=== PATIENT | female | born 1950 | race Caucasian/White ===

== ENCOUNTER → 2017-03-30 | Outpatient (CLI) | payer MEDICARE, OTHER ==
[2017-03-30 10:12] LABS: Chloride 107 mmol/L (98-107)
[2017-03-30 10:20] LABS: ALT 19 U/L (9-52); AST 14 U/L (14-36); Alkaline Phosphatase 49 U/L (38-126); Anion Gap 11 mmol/L; Blood Urea Nitrogen 14 mg/dL (7-17); Calcium 9.5 mg/dL (8.4-10.2); Carbon Dioxide 23 mmol/L (22-30); Cholesterol 144 mg/dL (<200); Glucose 122 mg/dL (74-99); HDL Cholesterol 65 mg/dL (40-60); Non-African American GFR(MDRD) >60 (>60 ml/min/1.73 sqM); Potassium 4.6 mmol/L (3.5-5.1); Sodium 141 mmol/L (137-145); Total Bilirubin 0.9 mg/dL (0.2-1.3); Total Protein 7.3 g/dL (6.3-8.2); Triglycerides 102 mg/dL (<150)
[2017-03-30 10:51] LABS: Hemoglobin A1C 6.5 % (4.2-6.1)
== END | disposition home or self-care (01) ==
LOC: LABWHC1 09:36
PROVIDERS: ATTEND Internal Medicine Endocrinology, Diabetes & Metabolism
DX: E11.65 Type 2 diabetes mellitus with hyperglycemia (principal)
CPT/HCPCS: 36415; 80053; 80061; 82043; 83036

== ENCOUNTER → 2018-03-29 | Outpatient (CLI) | payer MEDICARE, OTHER ==
[2018-03-29 11:41] LABS: ALT 16 U/L (9-52); AST 11 U/L (14-36); Alkaline Phosphatase 54 U/L (38-126); Anion Gap 12 mmol/L; Blood Urea Nitrogen 10 mg/dL (7-17); Calcium 9.3 mg/dL (8.4-10.2); Carbon Dioxide 26 mmol/L (22-30); Chloride 104 mmol/L (98-107); Cholesterol 128 mg/dL (<200); Glucose 108 mg/dL (74-99); HDL Cholesterol 55 mg/dL (40-60); LDL Cholesterol,Calculated 49 mg/dL (0-99); Potassium 4.9 mmol/L (3.5-5.1); Sodium 142 mmol/L (137-145); Total Bilirubin 0.7 mg/dL (0.2-1.3); Total Protein 6.3 g/dL (6.3-8.2); Triglycerides 122 mg/dL (<150)
[2018-03-29 20:19] LABS: Hemoglobin A1C 6.7 % (4.0-6.0)
== END | disposition home or self-care (01) ==
LOC: LABWHC1 10:55
PROVIDERS: ATTEND Internal Medicine Endocrinology, Diabetes & Metabolism
DX: E11.65 Type 2 diabetes mellitus with hyperglycemia (principal); E78.2 Mixed hyperlipidemia
CPT/HCPCS: 36415; 80053; 80061; 82043; 82570; 83036

== ENCOUNTER → 2018-09-28 | Outpatient (CLI) | payer MEDICARE, OTHER ==
[2018-09-28 18:41] LABS: Albumin 4.4 g/dL (3.80-4.90); Albumin/Globulin Ratio 2.2 (1.20-2.10); Anion Gap 7.9 mmol/L (4.00-12.00); Calcium 9.4 mg/dL (8.7-10.3); Carbon Dioxide 28.1 mmol/L (21.6-31.8); LDL Cholesterol,Calculated 64.8 mg/dL (0.0-131.0); Potassium 4.1 mmol/L (3.5-5.5); Total Bilirubin 0.8 mg/dL (0.3-1.2); Total Protein 6.4 g/dL (6.2-8.2); VLDL Calculation 25.2 mg/dL (5.00-40.00)
[2018-09-28 22:44] LABS: Hemoglobin A1C 6.9 % (4.0-6.0)
== END ==
LOC: LABWHC1 11:35
PROVIDERS: ATTEND Internal Medicine Endocrinology, Diabetes & Metabolism
DX: E11.65 Type 2 diabetes mellitus with hyperglycemia (principal); E78.2 Mixed hyperlipidemia
CPT/HCPCS: 36415; 80053; 80061; 82043; 82570; 83036

== ENCOUNTER → 2018-11-21 | Outpatient (CLI) | payer MEDICARE, OTHER ==
[2018-11-21 11:05] LABS: HCT 40.4 % (34.0-46.0); HGB 13.5 gm/dL (11.4-16.0); MCHC 33.4 g/dL (31.0-37.0); MCV 92.7 fL (80.0-100.0); Mean Platelet Volume 7.8; Platelet Count 249 k/uL (150-450); RBC 4.36 m/uL (3.80-5.40); RDW 12.6 % (11.5-15.5); WBC 8.9 k/uL (3.8-10.6)
[2018-11-21 11:12] LABS: Anion Gap 7 mmol/L; Blood Urea Nitrogen 8 mg/dL (7-17); Carbon Dioxide 28 mmol/L (22-30); Chloride 106 mmol/L (98-107); Potassium 4.6 mmol/L (3.5-5.1); Sodium 141 mmol/L (137-145)
== END | disposition home or self-care (01) ==
LOC: LABPAT 10:10
PROVIDERS: ATTEND Internal Medicine Interventional Cardiology
DX: Z01.812 Encounter for preprocedural laboratory examination (principal); I48.0 Paroxysmal atrial fibrillation; I25.10 Atherosclerotic heart disease of native coronary artery without angina pectoris; R94.39 Abnormal result of other cardiovascular function study
CPT/HCPCS: 36415; 80051; 82565; 84520; 85027

== ENCOUNTER → 2018-11-29 | Day surgery (SDC) | payer MEDICARE ==
[2018-11-21 14:18] VITALS: BMI 38.0
[~2018-11-29] MED LIST: ALPRAZolam 0.25 MG TAB PO PRN; ALPRAZolam 0.5 MG TAB PO PRN; ASPIRIN 325 MG TAB PO STA; ASPIRIN 81 MG PO SCH; ATORVASTATIN 20 MG TAB PO SCH; ATORVASTATIN 80 MG TAB PO STA; HEPARIN SODIUM 1,000 UN/ML (10ML VL) ONE; INSULIN GLARGINE 36 UNIT SQ SCH; IOPAMIDOL-370 100ML BTL INJ ONE; IOPAMIDOL-370 125ML BTL INJ ONE; LIDOCAINE 1% INJ 10MG/ML (20 ML MDV) ONE; LISINOPRIL 20 MG TAB PO SCH; LISINOPRIL 20 MG TAB PO STA; NITROGLYCERIN SL TABS 0.4 MG TAB SUBLINGUAL ONE; NITROGLYCERIN SL TABS 0.4 MG TAB SUBLINGUAL PRN; NON-FORMULARY DRUG (Liraglutide [Victoza 2-Pak] 1.2 MG) SQ SCH; RX INFO: IV CONTRAST WAS GIVEN 1 EACH MISC MISCELLANE PRN; SODIUM CHLORIDE 0.9% 1,000 ML IV ONE; SODIUM CHLORIDE 0.9% 1,000 ML IV SCH; SODIUM CHLORIDE 0.9% 1,000 ML in EMPTY BAG 1 BAG IV ONE; VERAPAMIL 2.5 MG/ML 2 ML AMP ONE; amLODIPine 5 MG TAB PO STA; fentaNYL (PF) 50 MCG/ML 2 ML AMP ONE
[2018-11-29 07:11] VITALS: RESP 18; TEMP 97.6
[2018-11-29] MEDS: fentaNYL (PF) 50 MCG/ML 2 ML AMP IV ONE ×2 (07:36→07:50)
[2018-11-29] MEDS: LIDOCAINE 1% INJ 10MG/ML (20 ML MDV) SQ ONE ×2 (07:40→07:48)
[2018-11-29] MEDS: MIDAZOLAM 2 MG/2 ML VIAL IV ONE ×3 (07:42→07:49)
[2018-11-29 08:13] LABS: Glucose,Whole Blood 168 mg/dL (75-99)
--- NOTE | 2018-11-29 08:49 | CC ---
CARDIAC CATHETERIZATION REPORT Mrs. Smallwood is a 68-year-old female with known history of hypertension, hyperlipidemia, diabetes mellitus, history of coronary artery bypass grafting in 2003 who has been complaining of progressive dyspnea on exertion underwent a myocardial perfusion imaging that revealed evidence of inducible ischemia. In view of that, recommendation was made regarding cardiac catheterization. The procedures as well as the risks and the complications were discussed with the patient who is in full understanding and agreement. PROCEDURE: Patient was brought to the dye lab technician in a fasting semi-sedated state after receiving fentanyl and Benadryl and achieving moderate conscious sedated state. Attempts to cannulate the left radial artery were unsuccessful at that time. Using Xylocaine anesthesia in the Seldinger technique, a 6-Tristanian sheath was introduced in the right femoral artery. Selective right and left coronary angiography performed 6-Tristanian 4 bend, right and left Lexy catheter, multiple views of the coronary artery including hemiaxial views were obtained. Following that, the 6-Tristanian right Lexy catheter was used to cannulate the saphenous vein graft to the ramus intermedius, saphenous vein graft to the right coronary artery and VERA to the LAD. Images of the grafts were obtained. Following that, a 6-Tristanian tight pigtail catheter was introduced in the left ventricle and a 30-degree HARRIS view of the left ventricle was obtained. Following that, catheter and sheath were removed. Hemostasis was obtained with deployment of an Angio- Seal. There was no immediate complication. Patient was returned to her room in stable condition. FINDINGS: LEFT MAIN: This vessel is totally occluded proximally with no antegrade flow. RIGHT CORONARY ARTERY: This is a dominant vessel large in caliber bifurcating distally PDA, posterolateral segment and branches. The right coronary artery has a 95% stenosis in the mid segment. It has competitive flow distally through the saphenous vein graft. SAPHENOUS VEIN GRAFT TO THE RAMUS INTERMEDIUS: The proximal and distal anastomotic sites are patent. The flow into the ramus intermedius and left circumflex territory is brisk. There is diffuse intimal disease in the AV groove left circumflex. SAPHENOUS VEIN GRAFT TO THE RIGHT CORONARY ARTERY: The proximal and distal anastomotic sites are patent. The flow into the PDA and PLV is brisk. There is no evidence of high-grade stenosis. VERA TO THE LAD: The distal anastomotic site is patent. The flow into the LAD is brisk. There is no evidence of obstructive coronary artery disease. LEFT VENTRICULOGRAM: Left ventriculogram is performed in 30-degree HARRIS view and revealed normal left ventricular size and systolic function. Ejection fraction is above 60%. There was no significant mitral regurgitation. HEMODYNAMICS: There was no gradient across the aortic valve. The left ventricular end- diastolic pressure was 14 to 16 mmHg. CONCLUSION: 1. Chronically occluded proximal left main. 2. Critical stenosis in the mid right coronary artery. 3. Patent VERA to LAD. 4. Patent saphenous vein graft to the ramus intermedius. 5. Patent saphenous vein graft to the right coronary artery. 6. Normal left ventricular size and systolic function. RECOMMENDATION: In view of finding anatomy, recommend to continue medical therapy with aggressive coronary risk modifications that have been initiated. Those findings and recommendation were discussed with the patient and her family who are in full understanding and agreement. DURATION OF PROCEDURE: 42 minutes. LINK / CHIP: [id number] /
[2018-11-29 17:03] VITALS: PULSE 64
[2018-11-29 17:07] VITALS: BP 190/78
== END | disposition home or self-care (01) ==
LOC: CATHCVL 06:29
PROVIDERS: ATTEND Internal Medicine Interventional Cardiology
DX: I25.10 Atherosclerotic heart disease of native coronary artery without angina pectoris (principal); I25.82 Chronic total occlusion of coronary artery; I10 Essential (primary) hypertension; E78.2 Mixed hyperlipidemia; I48.0 Paroxysmal atrial fibrillation; E11.9 Type 2 diabetes mellitus without complications; Z79.4 Long term (current) use of insulin; Z82.49 Family history of ischemic heart disease and other diseases of the circulatory system; Z95.1 Presence of aortocoronary bypass graft; Z79.01 Long term (current) use of anticoagulants; Z79.82 Long term (current) use of aspirin; Z79.899 Other long term (current) drug therapy; Z88.0 Allergy status to penicillin
CPT/HCPCS: 93459; C1760; C1894 ×2; C1769; J2250; J2001; J3010; Q9967 ×2

== ENCOUNTER → 2019-03-28 | Outpatient (CLI) | payer MEDICARE ==
[2019-03-28 16:24] LABS: Albumin 4.3 g/dL (3.80-4.90); Albumin/Globulin Ratio 2.39 (1.60-3.17); Anion Gap 11.2 mmol/L (4.00-12.00); Calcium 9.1 mg/dL (8.7-10.3); Carbon Dioxide 23.8 mmol/L (21.6-31.8); Globulin 1.8 g/dL (1.6-3.3); LDL Cholesterol,Calculated 67.6 mg/dL (0.0-131.0); Potassium 4.1 mmol/L (3.5-5.5); Total Bilirubin 0.7 mg/dL (0.2-1.2); Total Protein 6.1 g/dL (6.2-8.2); VLDL Calculation 23.4 mg/dL (5.00-40.00)
[2019-03-28 18:43] LABS: Hemoglobin A1C 7.1 % (4.0-6.0)
== END | disposition home or self-care (01) ==
LOC: LABWHC1 10:25
PROVIDERS: ATTEND Nurse Practitioner Adult Health
DX: E78.2 Mixed hyperlipidemia (principal); E11.65 Type 2 diabetes mellitus with hyperglycemia
CPT/HCPCS: 36415; 80053; 80061; 82043; 82570; 83036

== ENCOUNTER → 2019-09-27 | Outpatient (CLI) | payer MEDICARE ==
[2019-09-27 17:51] LABS: African American GFR (CKD) 106.3 (60.0-200.0); Albumin 4.2 g/dL (3.80-4.90); Albumin/Globulin Ratio 2.21 (1.60-3.17); Anion Gap 9.7 mmol/L (4.00-12.00); BUN/Creat Ratio 18.33 Ratio (12.00-20.00); Calcium 8.9 mg/dL (8.7-10.3); Carbon Dioxide 24.3 mmol/L (21.6-31.8); Chol/HDL Ratio 2.81; Globulin 1.9 g/dL (1.6-3.3); LDL Cholesterol,Calculated 56.8 mg/dL (0.0-131.0); Potassium 4.2 mmol/L (3.5-5.5); Total Bilirubin 0.4 mg/dL (0.2-1.2); Total Protein 6.1 g/dL (6.2-8.2); VLDL Calculation 28.2 mg/dL (5.00-40.00)
[2019-09-27 18:04] LABS: Hemoglobin A1C 6.5 % (4.0-6.0)
== END | disposition home or self-care (01) ==
LOC: LABWHC1 07:15
PROVIDERS: ATTEND Internal Medicine Endocrinology, Diabetes & Metabolism
DX: E78.2 Mixed hyperlipidemia (principal)
CPT/HCPCS: 36415; 80053; 80061; 82043; 82570; 83036; 84443

== ENCOUNTER → 2020-06-17 | Outpatient (CLI) | payer MEDICARE ==
[2020-06-17 16:54] LABS: Albumin 4.4 g/dL (3.80-4.90); Albumin/Globulin Ratio 1.91 (1.60-3.17); Anion Gap 11.1 mmol/L (4.00-12.00); BUN/Creat Ratio 21.11 Ratio (12.00-20.00); Calcium 9.4 mg/dL (8.7-10.3); Carbon Dioxide 21.9 mmol/L (21.6-31.8); Globulin 2.3 g/dL (1.6-3.3); LDL Cholesterol,Calculated 53.2 mg/dL (0.0-131.0); Non-African American GFR(CKD) 63.9 (60.0-200.0); Potassium 4.2 mmol/L (3.5-5.5); Total Bilirubin 0.8 mg/dL (0.3-1.2); Total Protein 6.7 g/dL (6.2-8.2); VLDL Calculation 28.8 mg/dL (5.00-40.00)
[2020-06-17 18:47] LABS: Urine Creatinine 93.2 mg/dL
[2020-06-17 20:18] LABS: Hemoglobin A1C 7.1 % (4.0-6.0)
== END | disposition home or self-care (01) ==
LOC: LABWHC1 10:51
PROVIDERS: ATTEND Internal Medicine Interventional Cardiology
DX: I10 Essential (primary) hypertension (principal); E78.2 Mixed hyperlipidemia; E11.65 Type 2 diabetes mellitus with hyperglycemia
CPT/HCPCS: 36415; 80053; 80061; 82043; 82570; 83036; 84443

== ENCOUNTER → 2020-09-14 | Outpatient (CLI) | payer MEDICARE ==
[2020-09-14 19:22] LABS: Albumin 4.2 g/dL (3.80-4.90); Anion Gap 8.3 mmol/L (4.00-12.00); Calcium 9.6 mg/dL (8.7-10.3); Carbon Dioxide 23.7 mmol/L (21.6-31.8); Globulin 2.1 g/dL (1.6-3.3); Non-African American GFR(CKD) 63.9 (60.0-200.0); Potassium 4.4 mmol/L (3.5-5.5); Total Bilirubin 0.5 mg/dL (0.3-1.2); Total Protein 6.3 g/dL (6.2-8.2)
== END | disposition home or self-care (01) ==
LOC: LABWHC1 12:14
PROVIDERS: ATTEND Internal Medicine Interventional Cardiology
DX: D48.3 Neoplasm of uncertain behavior of retroperitoneum (principal)
CPT/HCPCS: 36415; 80053; 84443

== ENCOUNTER → 2020-09-29 | Outpatient (CLI) | payer MEDICARE ==
[2020-09-29 15:58] LABS: Chol/HDL Ratio 2.85; LDL Cholesterol,Calculated 51.8 mg/dL (0.0-131.0); VLDL Calculation 24.2 mg/dL (5.00-40.00)
[2020-09-29 16:19] LABS: Hemoglobin A1C 6.9 % (4.0-6.0)
[2020-09-29 16:31] LABS: Urine Creatinine 146.4 mg/dL
== END | disposition home or self-care (01) ==
LOC: LABWHC1 07:31
PROVIDERS: ATTEND Internal Medicine Endocrinology, Diabetes & Metabolism
DX: E11.65 Type 2 diabetes mellitus with hyperglycemia (principal)
CPT/HCPCS: 36415; 80061; 82043; 82570; 83036

== ENCOUNTER → 2021-05-04 | Outpatient (CLI) | payer MEDICARE ==
[2021-05-04 20:34] LABS: African American GFR (CKD) 73.5 (60.0-200.0); Albumin/Globulin Ratio 1.74 (1.60-3.17); Anion Gap 8.8 mmol/L (4.00-12.00); BUN/Creat Ratio 25.56 Ratio (12.00-20.00); Calcium 9.9 mg/dL (8.7-10.3); Carbon Dioxide 22.2 mmol/L (21.6-31.8); Chol/HDL Ratio 2.67; Globulin 2.3 g/dL (1.6-3.3); LDL Cholesterol,Calculated 44.8 mg/dL (0.0-131.0); Non-African American GFR(CKD) 63.4 (60.0-200.0); Potassium 4.3 mmol/L (3.5-5.5); Total Bilirubin 0.5 mg/dL (0.2-1.2); Total Protein 6.3 g/dL (6.2-8.2); VLDL Calculation 20.2 mg/dL (5.00-40.00)
[2021-05-04 22:21] LABS: Urine Creatinine 31.9 mg/dL
== END | disposition home or self-care (01) ==
LOC: LABWHC1 10:12
PROVIDERS: ATTEND Internal Medicine Endocrinology, Diabetes & Metabolism
DX: E11.65 Type 2 diabetes mellitus with hyperglycemia (principal)
CPT/HCPCS: 36415; 80053; 80061; 82043; 82570; 83036; 84443

== ENCOUNTER → 2021-10-25 | Outpatient (CLI) | payer MEDICARE ==
[2021-10-25 11:39] LABS: ALT 11 U/L (8-44); AST 18 U/L (13-35); African American GFR (CKD) 70.8 (60.0-200.0); Albumin 4.2 g/dL (3.8-4.9); Albumin/Globulin Ratio 1.68 (1.60-3.17); Alkaline Phosphatase 56 U/L (41-126); BUN/Creat Ratio 27.48 Ratio (12.00-20.00); Blood Urea Nitrogen 25.5 mg/dL (9.0-27.0); Calcium 9.4 mg/dL (8.7-10.3); Carbon Dioxide 20.8 mmol/L (20.0-27.5); Chloride 105 mmol/L (96-109); Chol/HDL Ratio 2.46 Ratio; Globulin 2.5 g/dL (1.6-3.3); Glucose 67 mg/dL (70-110); LDL Cholesterol,Calculated 55.3 mg/dL (0.0-131.0); Non-African American GFR(CKD) 61.1 (60.0-200.0); Potassium 4.3 mmol/L (3.5-5.5); Sodium 139 mmol/L (135-145); Total Protein 6.8 g/dL (6.2-8.2)
[2021-10-25 12:12] LABS: Urine Creatinine 52.2 mg/dL (28.0-217.0)
== END | disposition home or self-care (01) ==
LOC: LABWHC1 07:28
PROVIDERS: ATTEND Internal Medicine Endocrinology, Diabetes & Metabolism
DX: E11.65 Type 2 diabetes mellitus with hyperglycemia (principal)
CPT/HCPCS: 36415; 80053; 80061; 82043; 82570; 83036; 84443

== ENCOUNTER → 2022-05-03 | Outpatient (CLI) | payer MEDICARE ==
[2022-05-03 15:34] LABS: ALT 11 U/L (8-44); AST 13 U/L (13-35); Albumin 4.1 g/dL (3.8-4.9); Albumin/Globulin Ratio 1.64 (1.60-3.17); Alkaline Phosphatase 51 U/L (41-126); BUN/Creat Ratio 28.89 Ratio (12.00-20.00); Calcium 9.5 mg/dL (8.7-10.3); Chloride 107 mmol/L (96-109); Chol/HDL Ratio 2.43 Ratio; Globulin 2.5 g/dL (1.6-3.3); Glucose 81 mg/dL (70-110); LDL Cholesterol,Calculated 59.3 mg/dL (0.0-131.0); Potassium 4.7 mmol/L (3.5-5.5); Sodium 142 mmol/L (135-145); Total Protein 6.6 g/dL (6.2-8.2)
[2022-05-03 17:31] LABS: Microalbumin Creatinine Ratio <30 mg/g Creat (0-30); Urine Creatinine 45.8 mg/dL (28.0-217.0)
== END | disposition home or self-care (01) ==
LOC: LABWHC1 08:54
PROVIDERS: ATTEND Internal Medicine Endocrinology, Diabetes & Metabolism
DX: E78.2 Mixed hyperlipidemia (principal); E11.65 Type 2 diabetes mellitus with hyperglycemia
CPT/HCPCS: 36415; 80053; 80061; 82043; 82570; 83036; 84443

== ENCOUNTER → 2022-10-31 | Outpatient (CLI) | payer MEDICARE ==
[2022-10-31 15:23] LABS: ALT 7 U/L (8-44); AST 15 U/L (13-35); African American GFR (CKD) 57.3 (60.0-200.0); Albumin/Globulin Ratio 1.48 (1.60-3.17); Alkaline Phosphatase 45 U/L (41-126); BUN/Creat Ratio 17.36 Ratio (12.00-20.00); Blood Urea Nitrogen 19.1 mg/dL (9.0-27.0); Calcium 9.7 mg/dL (8.7-10.3); Carbon Dioxide 24.2 mmol/L (20.0-27.5); Chloride 107 mmol/L (96-109); Chol/HDL Ratio 2.32 Ratio; Globulin 2.7 g/dL (1.6-3.3); Glucose 90 mg/dL (70-110); LDL Cholesterol,Calculated 56.6 mg/dL (0.0-131.0); Non-African American GFR(CKD) 49.4 (60.0-200.0); Potassium 4.2 mmol/L (3.5-5.5); Sodium 140 mmol/L (135-145); Total Protein 6.7 g/dL (6.2-8.2); VLDL Calculation 16.92 mg/dL (5.00-40.00)
[2022-10-31 19:59] LABS: Urine Creatinine 45.9 mg/dL (28.0-217.0)
== END | disposition home or self-care (01) ==
LOC: LABWHC1 07:53
PROVIDERS: ATTEND Internal Medicine Endocrinology, Diabetes & Metabolism
DX: E11.65 Type 2 diabetes mellitus with hyperglycemia (principal); E78.2 Mixed hyperlipidemia
CPT/HCPCS: 36415; 80053; 80061; 82043; 82570; 83036; 84443

== ENCOUNTER → 2023-02-09 | Outpatient (CLI) | payer MEDICARE | END | disposition home or self-care (01) | LOC: LABWHC1 11:04 | PROVIDERS: ATTEND Nurse Practitioner Adult Health | DX: I48.11 Longstanding persistent atrial fibrillation (principal); R00.1 Bradycardia, unspecified | CPT/HCPCS: 36415; 84443 ==

== ENCOUNTER → 2023-05-04 | Outpatient (CLI) | payer MEDICARE ==
[2023-05-04 15:59] LABS: Chol/HDL Ratio 2.24 Ratio; LDL Cholesterol,Calculated 58.1 mg/dL (0.0-131.0)
[2023-05-04 16:06] LABS: ALT 12 U/L (8-44); AST 12 U/L (13-35); Albumin 4.2 d/dL (3.8-4.9); Albumin/Globulin Ratio 1.68 Ratio (1.60-3.17); Alkaline Phosphatase 50 U/L (41-126); BUN/Creat Ratio 21.91 Ratio (12.00-20.00); Blood Urea Nitrogen 24.1 mg/dL (9.0-27.0); Calcium 9.7 mg/dL (8.7-10.3); Carbon Dioxide 23.4 mmol/L (21.6-31.8); Chloride 105 mmol/L (96-109); Globulin 2.5 d/dL (1.6-3.3); Glucose 47 mg/dL (70-110); Potassium 4.5 mmol/L (3.5-5.5); Sodium 141 mmol/L (135-145); Total Bilirubin 0.3 mg/dL (0.3-1.2); Total Protein 6.7 d/dL (6.2-8.2)
[2023-05-04 18:34] LABS: Urine Creatinine 38.7 mg/dL (28.0-217.0)
== END | disposition home or self-care (01) ==
LOC: LABWHC1 10:38
PROVIDERS: ATTEND Internal Medicine Endocrinology, Diabetes & Metabolism
DX: E11.65 Type 2 diabetes mellitus with hyperglycemia (principal)
CPT/HCPCS: 36415; 80053; 80061; 82043; 82570; 83036; 84443

== ENCOUNTER → 2023-11-06 | Outpatient (CLI) | payer MEDICARE ==
[2023-11-06 11:15] LABS: ALT 12 U/L (8-44); AST 13 U/L (13-35); Albumin 4.1 g/dL (3.8-4.9); Albumin/Globulin Ratio 1.58 Ratio (1.60-3.17); Alkaline Phosphatase 61 U/L (41-126); BUN/Creat Ratio 18.17 Ratio (12.00-20.00); Blood Urea Nitrogen 21.8 mg/dL (9.0-27.0); Calcium 9.7 mg/dL (8.7-10.3); Carbon Dioxide 19.7 mmol/L (21.6-31.8); Chloride 104 mmol/L (96-109); Chol/HDL Ratio 2.19 Ratio; Globulin 2.6 g/dL (1.6-3.3); Glucose 73 mg/dL (70-110); LDL Cholesterol,Calculated 59.1 mg/dL (0.0-131.0); Potassium 4.4 mmol/L (3.5-5.5); Sodium 143 mmol/L (135-145); Total Bilirubin 0.2 mg/dL (0.3-1.2); Total Protein 6.7 g/dL (6.2-8.2); VLDL Calculation 13.26 mg/dL (5.00-40.00)
[2023-11-06 22:18] LABS: Urine Creatinine 63.5 mg/dL (28.0-217.0)
== END | disposition home or self-care (01) ==
LOC: LABWHC1 07:23
PROVIDERS: ATTEND Internal Medicine Endocrinology, Diabetes & Metabolism
DX: E11.65 Type 2 diabetes mellitus with hyperglycemia (principal)
CPT/HCPCS: 36415; 80053; 80061; 82043; 82570; 83036; 84443

== ENCOUNTER → 2024-05-01 | Outpatient (CLI) | payer MEDICARE ==
[2024-05-01 16:46] LABS: ALT 11 U/L (8-44); AST 13 U/L (13-35); Albumin 4.3 g/dL (3.8-4.9); Albumin/Globulin Ratio 1.79 Ratio (1.60-3.17); Alkaline Phosphatase 52 U/L (41-126); BUN/Creat Ratio 23.93 Ratio (12.00-20.00); Blood Urea Nitrogen 33.5 mg/dL (9.0-27.0); Calcium 9.5 mg/dL (8.7-10.3); Carbon Dioxide 19.8 mmol/L (21.6-31.8); Chloride 106 mmol/L (96-109); Globulin 2.4 g/dL (1.6-3.3); Glucose 64 mg/dL (70-110); LDL Cholesterol,Calculated 60.7 mg/dL (0.0-131.0); Potassium 4.4 mmol/L (3.5-5.5); Sodium 140 mmol/L (135-145); Total Bilirubin 0.2 mg/dL (0.3-1.2); Total Protein 6.7 g/dL (6.2-8.2)
== END | disposition home or self-care (01) ==
LOC: LABWHC1 10:21
PROVIDERS: ATTEND Internal Medicine Interventional Cardiology
DX: E78.2 Mixed hyperlipidemia (principal)
CPT/HCPCS: 36415; 80053; 80061

== ENCOUNTER → 2024-05-07 | Outpatient (CLI) | payer MEDICARE ==
[2024-05-07 11:44] LABS: ALT 8 U/L (8-44); AST 16 U/L (13-35); Albumin 4.3 g/dL (3.8-4.9); Albumin/Globulin Ratio 1.79 Ratio (1.60-3.17); Alkaline Phosphatase 52 U/L (41-126); BUN/Creat Ratio 21.46 Ratio (12.00-20.00); Blood Urea Nitrogen 27.9 mg/dL (9.0-27.0); Carbon Dioxide 22.3 mmol/L (21.6-31.8); Chloride 106 mmol/L (96-109); Globulin 2.4 g/dL (1.6-3.3); Glucose 82 mg/dL (70-110); Potassium 4.5 mmol/L (3.5-5.5); Sodium 141 mmol/L (135-145); Total Bilirubin 0.2 mg/dL (0.3-1.2); Total Protein 6.7 g/dL (6.2-8.2)
[2024-05-07 18:51] LABS: Urine Creatinine 83.7 mg/dL (28.0-217.0)
== END | disposition home or self-care (01) ==
LOC: LABWHC1 07:29
PROVIDERS: ATTEND Internal Medicine Endocrinology, Diabetes & Metabolism
DX: E11.65 Type 2 diabetes mellitus with hyperglycemia (principal)
CPT/HCPCS: 36415; 80053; 82043; 82570; 83036; 84443

== ENCOUNTER → 2024-11-07 | Outpatient (CLI) | payer MEDICARE ==
[2024-11-07 15:28] LABS: ALT 11 U/L (8-44); AST 13 U/L (13-35); Albumin 4.1 g/dL (3.8-4.9); Albumin/Globulin Ratio 1.52 Ratio (1.60-3.17); Alkaline Phosphatase 56 U/L (41-126); BUN/Creat Ratio 18.36 Ratio (12.00-20.00); Blood Urea Nitrogen 25.7 mg/dL (9.0-27.0); Calcium 9.4 mg/dL (8.7-10.3); Chloride 105 mmol/L (96-109); Chol/HDL Ratio 2.06 Ratio; Globulin 2.7 g/dL (1.6-3.3); Glucose 68 mg/dL (70-110); LDL Cholesterol,Calculated 56.8 mg/dL (0.0-131.0); Potassium 4.2 mmol/L (3.5-5.5); Sodium 143 mmol/L (135-145); Total Bilirubin 0.4 mg/dL (0.3-1.2); Total Protein 6.8 g/dL (6.2-8.2); VLDL Calculation 16.66 mg/dL (5.00-40.00)
[2024-11-07 20:32] LABS: Urine Creatinine 65.2 mg/dL (28.0-217.0)
== END | disposition home or self-care (01) ==
LOC: LABWHC1 12:18
PROVIDERS: ATTEND Internal Medicine Endocrinology, Diabetes & Metabolism
DX: E11.65 Type 2 diabetes mellitus with hyperglycemia (principal)
CPT/HCPCS: 36415; 80053; 80061; 82043; 82570; 83036; 84443

== ENCOUNTER 2024-12-06 13:15 | Observation (INO) | payer MEDICARE ==
[2024-12-06 13:20] LABS: Glucose,Whole Blood 105 mg/dL (70-110)
--- NOTE | 2024-12-06 13:46 | CT ---
EXAMINATION TYPE: CT brain cspine wo con CT DLP: 1282.4 mGycm, Automated exposure control for dose reduction was used. DATE OF EXAM: 12/06/2024 1:30 PM COMPARISON: None.. CLINICAL INDICATION:Female, 74 years old with history of fall, head injury; Code Coag, Fall on thinne rs. TECHNIQUE: Brain: Multiple axial CT images of the brain were obtained without IV contrast. Cspine: Axial CT images from the skull base to the inferior aspect of T2 we obtained without intraven ous contrast. Coronal and sagittal reformatted images were also reviewed. FINDINGS: Brain: Extra-axial spaces: No abnormal extra-axial fluid collections. Ventricular system: Within normal limits Cerebral parenchyma: Age-appropriate cerebral volume loss. No acute intraparenchymal hemorrhage or ma ss effect. The thompson-white junction is well differentiated. Scattered hypoattenuating areas are seen within the periventricular white matter. Cerebellum: Unremarkable. Mass effect: No evidence of midline shift. Intracranial vasculature: Atherosclerotic calcifications of the intracranial vessels. Soft tissues: Right lateral periorbital mild soft tissue contusion with a focus of gas. Calvarium/osseous structures: No depressed skull fracture. Paranasal sinuses and mastoid air cells: Postsurgical changes from bilateral medial maxillary wall an d ethmoid sinus surgery. The paranasal sinuses are clear. Minimal mid opacification inferior right ma stoid air cells. Mild opacification inferior left mastoid air cells. Visualized orbits: Bilateral aphakia Cervical spine: Fracture: None. Osseous structures: Multilevel degenerative disc disease changes with endplate spurring and disc oste ophyte complex's. There is fusion of the C4-C6 vertebral bodies. Fusion of the left C6-C7 facet joint . Large anterior osteophyte at C3-C4 and T2-T3. Vertebral alignment: Within normal limits. Spinal canal/Neural Foramina: Disc osteophyte complexes at C3-C4 and C6-C7 with at least mild spinal canal stenosis. Facet joint uncovertebral joint arthropathy scattered throughout the cervical spine w ith varying degrees of neural foraminal stenosis. Neck soft tissues: Prevertebral soft tissues are within normal limits. Other: The airway is patent. The lung apices are clear. Bilateral carotid bulb calcifications. 1.2 cm hypodense nodule within the right thyroid lobe with adjacent macrocalcification. IMPRESSION: 1. No acute intracranial process. 2. Nonspecific white matter changes, likely secondary to chronic small vessel ischemic disease. 3. Minimal right lateral periorbital soft tissue contusion with laceration. 4. Minimal bilateral mastoid effusions with left greater than right. 5. No evidence of cervical spine fracture. 6. Mild to moderate multilevel degenerative disc disease. [facility], , 12/06/2024 1:43 PM
[2024-12-06] MEDS: ONDANSETRON 4 MG/2 ML VIAL IVP STA (14:00)
[2024-12-06 14:11] LABS: Basophils % (A) 0 %; Eosinophils # (A) 0.2 k/uL (0-0.7); Eosinophils % (A) 3 %; HCT 26.2 % (34.0-46.0); HGB 8.6 gm/dL (11.4-16.0); Lymphocytes # (A) 3.2 k/uL (1.0-4.8); Lymphocytes % (A) 45 %; MCHC 32.8 g/dL (31.0-37.0); MCV 106.9 fL (80.0-100.0); Macrocytosis Moderate; Mean Platelet Volume 8.4; Monocytes # (A) 0.4 k/uL (0-1.0); Monocytes % (A) 6 %; Neutrophils # (A) 3.1 k/uL (1.3-7.7); Neutrophils % (A) 43 %; Platelet Count 173 k/uL (150-450); RBC 2.45 m/uL (3.80-5.40); RDW 13.1 % (11.5-15.5); WBC 7.1 k/uL (3.8-10.6)
--- NOTE | 2024-12-06 14:12 | ED ---
Syncope HPI - General Stated Complaint: Fall-Head injury Time Seen by Provider: 12/06/24 13:16 - History of Present Illness Initial Comments: 74-year-old female with past medical history of A-fib on Eliquis, diabetes, hypertension, coronary vascular disease with open heart surgery who presents to the emergency department after a syncopal episode. Patient was reportedly at the [facility] with her . Bystander states that she stood from a seated position and lost consciousness. She fell down and hit the right side of her head. Patient was out for less than a minute. When she became arousable she was confused. Patient thought that it was 2000. She has no recollection of the event. She denies having any chest pain or shortness of breath prior to the incident. Patient was not having any complaints of chest pain, shortness of breath, nausea, headache or visual disturbance prior to the episode per her . Patient does take Eliquis for A-fib. No other injuries reported. No other alleviating, precipitating or modifying factors - Related Data Home Medications Medication Instructions Recorded Confirmed metFORMIN HCL [Glucophage] 1,000 mg PO BID 07/31/15 12/06/24 Pioglitazone [Actos] 30 mg PO DAILY 12/06/24 12/06/24 Rosuvastatin [Crestor] 10 mg PO DAILY 12/06/24 12/06/24 amLODIPine [Norvasc] 5 mg PO DAILY 12/06/24 12/06/24 glipiZIDE [Glucotrol] 10 mg PO DAILY 12/06/24 12/06/24 hydroCHLOROthiazide [Hydrodiuril] 25 mg PO DAILY 12/06/24 12/06/24 lisinopriL [Zestril] 40 mg PO DAILY 12/06/24 12/06/24 Allergies Allergy/AdvReac Type Severity Reaction Status Date / Time Penicillins Allergy Dyspnea Verified 12/06/24 13:45 Review of Systems ROS Statement: Those systems with pertinent positive or pertinent negative responses have been documented in the HPI. ROS Other: All systems not noted in ROS Statement are negative. Past Medical History Past Medical History: Atrial Fibrillation, Asthma, Cancer, Diabetes Mellitus, Hyperlipidemia, Hypertension, Myocardial Infarction ([place]), Osteoarthritis (OA) Additional Past Medical History / Comment(s): hx. skin cancer Last Myocardial Infarction Date:: 2002 History of Any Multi-Drug Resistant Organisms: None Reported Past Surgical History: Coronary Bypass/CABG, Heart Catheterization With Stent, Orthopedic Surgery, Tonsillectomy Additional Past Surgical History / Comment(s): foot surg., cardioversion, triple bypass Past Anesthesia/Blood Transfusion Reactions: No Reported Reaction Date of Last Stent Placement:: unknown Past Psychological History: No Psychological Hx Reported Past Alcohol Use History: Occasional Past Drug Use History: None Reported - Past Family History Brother(s) Family Medical History: Deep Vein Thrombosis (DVT) Course Vital Signs 12/06/24 13:37 Temperature 98.0 F Pulse Rate 81 Respiratory 20 Rate Blood Pressure 147/59 O2 Sat by Pulse 100 Oximetry Medical Decision Making - Medical Decision Making Was pt. sent in by a medical professional or institution (, PA, ICE CREAM MACHINE OPERATOR, urgent care, hospital, or [place] health care facility...) When possible be specific @ -[No] Did you speak to anyone other than the patient for history (EMS, parent, family, police, friend...)? What history was obtained from this source @ -[No] Did you review nursing and triage notes (agree or disagree)? Why? @ -[I reviewed and agree with nursing and triage notes] Were old charts reviewed (outside hosp., previous admission, EMS record, old EKG, old radiological studies, urgent care reports/EKG's, [place] health care facility records)? Report findings @ -[No old charts were reviewed] Differential Diagnosis (chest pain, altered mental status, abdominal pain women, abdominal pain men, vaginal bleeding, weakness, fever, dyspnea, syncope, headache, dizziness, GI bleed, back pain, seizure, CVA, palpatations, mental health, musculoskeletal)? @ -[not applicable] EKG interpreted by me (3pts min.). @ -Yes and demonstrates sinus rhythm with a first-degree block. Rate of 84. IA interval is 224. QRS 157. QTc of 452. Right bundle branch block. No acute ST segment elevations X-rays interpreted by me (1pt min.). @ -[None done] CT interpreted by me (1pt min.). @ -[None done] U/S interpreted by me (1pt. min.). @ -[None done] What testing was considered but not performed or refused? (CT, X-rays, U/S, labs)? Why? @ -[None] What meds were considered but not given or refused? Why? @ -[None] Did you discuss the management of the patient with other professionals (professionals i.e. , PA, ICE CREAM MACHINE OPERATOR, lab, RT, psych nurse, director of social services, pricing/signage team member, teacher, industrial relations officer, block and case maker)? Give summary @ -[No] Was smoking cessation discussed for >3mins.? @ -[No] Was critical care preformed (if so, how long)? @ -[No] Were there social determinants of health that impacted care today? How? (Homelessness, low income, unemployed, alcoholism, drug addiction, transportat ion, low edu. Level, literacy, decrease access to med. care, nursing home, rehab)? @ -[No] Was there de-escalation of care discussed even if they declined (Discuss DNR or withdrawal of care, Hospice)? DNR status @ -[No] What co-morbidities impacted this encounter? (DM, HTN, Smoking, COPD, CAD, Cancer, CVA, ARF, Chemo, Hep., AIDS, mental health diagnosis, sleep apnea, morbid obesity)? @ -[None] Was patient admitted / discharged? Hospital course, mention meds given and route, prescriptions, significant lab abnormalities, going to OR and other pertinent info. @ -[hospital course] Undiagnosed new problem with uncertain prognosis? @ -[No] Drug Therapy requiring intensive monitoring for toxicity (Heparin, Nitro, Insulin, Cardizem)? @ -[No] Were any procedures done? @ -[No] Diagnosis/symptom? @ -[default] Acute, or Chronic, or Acute on Chronic? @ -[default] Uncomplicated (without systemic symptoms) or Complicated (systemic symptoms)? @ -[default] Side effects of treatment? @ -[No] Exacerbation, Progression, or Severe Exacerbation? @ -[No] Poses a threat to life or bodily function? How? (Chest pain, [place], [place], pneumonia, PE, COPD, DKA, ARF, appy, cholecystitis, CVA, Diverticulitis, Homicidal, Suicidal, threat to staff... and all critical care pts) @ -[No] - Lab Data Result diagrams: 12/06/24 13:53 12/06/24 13:53 Lab Results 12/06/24 12/06/24 12/06/24 Range/Units 13:19 13:53 13:53 WBC 7.1 (3.8-10.6) k/uL RBC 2.45 L (3.80-5.40) m/uL Hgb 8.6 L (11.4-16.0) gm/dL Hct 26.2 L (34.0-46.0) % MCV 106.9 H (80.0-100.0) fL MCH 35.0 (25.0-35.0) pg MCHC 32.8 (31.0-37.0) g/dL RDW 13.1 (11.5-15.5) % Plt Count 173 (150-450) k/uL MPV 8.4 Neutrophils % 43 % Lymphocytes % 45 % Monocytes % 6 % Eosinophils % 3 % Basophils % 0 % Neutrophils # 3.1 (1.3-7.7) k/uL Lymphocytes # 3.2 (1.0-4.8) k/uL Monocytes # 0.4 (0-1.0) k/uL Eosinophils # 0.2 (0-0.7) k/uL Basophils # 0.0 (0-0.2) k/uL Macrocytosis Moderate Sodium 139 (137-145) mmol/L Potassium 4.3 (3.5-5.1) mmol/L Chloride 109 H (98-107) mmol/L Carbon Dioxide 21 L (22-30) mmol/L Anion Gap 9 mmol/L BUN 32 H (7-17) mg/dL Creatinine 1.43 H (0.52-1.04) mg/dL Est GFR (CKD-EPI)AfAm 41 (>60 ml/min/1.73 sqM) Est GFR (CKD-EPI)NonAf 36 (>60 ml/min/1.73 sqM) Glucose 104 H (74-99) mg/dL POC Glucose (mg/dL) 105 (70-110) mg/dL POC Glu Steel Wheel Engraver ID Mix Og Calcium 9.0 (8.4-10.2) mg/dL Magnesium 1.3 L (1.6-2.3) mg/dL Total Bilirubin 0.4 (0.2-1.3) mg/dL AST 17 (14-36) U/L ALT 11 (4-34) U/L Alkaline Phosphatase 47 (38-126) U/L Troponin I (0.000-0.034) ng/mL Total Protein 6.1 L (6.3-8.2) g/dL Albumin 3.4 L (3.5-5.0) g/dL Urine Color Urine Appearance (Clear) Urine pH (5.0-8.0) Ur Specific Ever[place] (1.001-1.035) Urine Protein (Negative) Urine Glucose (UA) (Negative) Urine Ketones (Negative) Urine Blood (Negative) Urine Nitrite (Negative) Urine Bilirubin (Negative) Urine Urobilinogen (<2.0) mg/dL Ur Leukocyte Esterase (Negative) Urine RBC (0-5) /hpf Urine WBC (0-5) /hpf Ur Squamous Epith Cells (0-4) /hpf Urine Bacteria (None) /hpf Hyaline Casts (0-2) /lpf 12/06/24 12/06/24 Range/Units 13:53 15:29 WBC (3.8-10.6) k/uL RBC (3.80-5.40) m/uL Hgb (11.4-16.0) gm/dL Hct (34.0-46.0) % MCV (80.0-100.0) fL MCH (25.0-35.0) pg MCHC (31.0-37.0) g/dL RDW (11.5-15.5) % Plt Count (150-450) k/uL MPV Neutrophils % % Lymphocytes % % Monocytes % % Eosinophils % % Basophils % % Neutrophils # (1.3-7.7) k/uL Lymphocytes # (1.0-4.8) k/uL Monocytes # (0-1.0) k/uL Eosinophils # (0-0.7) k/uL Basophils # (0-0.2) k/uL Macrocytosis Sodium (137-145) mmol/L Potassium (3.5-5.1) mmol/L Chloride (98-107) mmol/L Carbon Dioxide (22-30) mmol/L Anion Gap mmol/L BUN (7-17) mg/dL Creatinine (0.52-1.04) mg/dL Est GFR (CKD-EPI)AfAm (>60 ml/min/1.73 sqM) Est GFR (CKD-EPI)NonAf (>60 ml/min/1.73 sqM) Glucose (74-99) mg/dL POC Glucose (mg/dL) (70-110) mg/dL POC Glu Steel Wheel Engraver ID Calcium (8.4-10.2) mg/dL Magnesium (1.6-2.3) mg/dL Total Bilirubin (0.2-1.3) mg/dL AST (14-36) U/L ALT (4-34) U/L Alkaline Phosphatase (38-126) U/L Troponin I 0.021 (0.000-0.034) ng/mL Total Protein (6.3-8.2) g/dL Albumin (3.5-5.0) g/dL Urine Color Colorless Urine Appearance Clear (Clear) Urine pH 6.5 (5.0-8.0) Ur Specific [place] 1.011 (1.001-1.035) Urine Protein Trace H (Negative) Urine Glucose (UA) Negative (Negative) Urine Ketones Negative (Negative) Urine Blood Negative (Negative) Urine Nitrite Negative (Negative) Urine Bilirubin Negative (Negative) Urine Urobilinogen <2.0 (<2.0) mg/dL Ur Leukocyte Esterase Small H (Negative) Urine RBC <1 (0-5) /hpf Urine WBC 2 (0-5) /hpf Ur Squamous Epith Cells 1 (0-4) /hpf Urine Bacteria Rare H (None) /hpf Hyaline Casts 1 (0-2) /lpf Disposition Clinical Impression: Syncope, Head injury, Anemia, Hypomagnesemia Disposition: ADMITTED IP TO THIS [facility] Condition: Stable Is patient prescribed a controlled substance at d/c from ED?: No Referrals: None,Stated [Primary Care Provider] - 1-2 days Time of Disposition: 17:15 Decision to Admit Reason: Admit from EC Decision Date: 12/06/24 Decision Time: 17:15
[2024-12-06 14:24] LABS: ALT 11 U/L (4-34); AST 17 U/L (14-36); African American GFR (CKD) 41 (>60 ml/min/1.73 sqM); Albumin 3.4 g/dL (3.5-5.0); Alkaline Phosphatase 47 U/L (38-126); Anion Gap 9 mmol/L; Blood Urea Nitrogen 32 mg/dL (7-17); Carbon Dioxide 21 mmol/L (22-30); Chloride 109 mmol/L (98-107); Glucose 104 mg/dL (74-99); Magnesium 1.3 mg/dL (1.6-2.3); Non-African American GFR(CKD) 36 (>60 ml/min/1.73 sqM); Potassium 4.3 mmol/L (3.5-5.1); Sodium 139 mmol/L (137-145); Total Bilirubin 0.4 mg/dL (0.2-1.3); Total Protein 6.1 g/dL (6.3-8.2)
--- NOTE | 2024-12-06 15:24 | XR ---
EXAMINATION TYPE: XR chest 2V DATE OF EXAM: 12/06/2024 3:18 PM COMPARISON: Chest radiographs 01/03/2014 TECHNIQUE: XR chest 2V Frontal and lateral views of the chest. CLINICAL INDICATION:Female, 74 years old with history of syncope; FINDINGS: Patient is rotated which limits evaluation. Lungs/Pleura: There is no evidence of pleural effusion, focal consolidation, or pneumothorax. Pulmonary vascularity: Unremarkable. Heart/mediastinum: Cardiomediastinal silhouette is enlarged. Atherosclerotic calcifications are seen in the aorta. Musculoskeletal: Multiple level degenerative disc disease changes seen throughout the spine. Midline sternotomy wires are noted. Bilateral AC joint arthropathy. IMPRESSION: No acute cardiopulmonary disease/process. [facility], , 12/06/2024 3:21 PM
[2024-12-06 16:12] LABS: Appearance,Urine Clear (Clear); Bacteria,Urine Rare /hpf; Bilirubin,Urine Negative (Negative); Blood,Urine Negative (Negative); Color,Urine Colorless; Glucose,Urine (UA) Negative (Negative); Hyaline Casts,Urine 1 /lpf (0-2); Ketones,Urine Negative (Negative); Leukocyte Esterase,Urine Small (Negative); Nitrite,Urine Negative (Negative); PH, Urine 6.5 (5.0-8.0); Protein,Urine Trace (Negative); RBC,Urine <1 /hpf (0-5); Specific Gravity,Urine 1.011 (1.001-1.035); Squamous Epithelial Cell,Urine 1 /hpf (0-4); Urobilinogen,Urine <2.0 mg/dL (<2.0); WBC,Urine 2 /hpf (0-5)
[2024-12-06] MEDS ORDERED: NALOXONE 0.4 MG/ML 1 ML VIAL IV PRN (17:20)
[2024-12-06] MEDS ORDERED: ONDANSETRON 4 MG/2 ML VIAL IVP PRN (17:20)
[2024-12-06] MEDS ORDERED: ACETAMINOPHEN TAB 325 MG TAB PO PRN (17:20)
[2024-12-06] MEDS: ACETAMINOPHEN IV (For NPO) 1,000 MG in EMPTY BAG 1 BAG IVPB STA (17:24)
[2024-12-06] MEDS: TOPICAL SKIN ADHESIVE 1 EACH AMP TOPICAL ONE (17:26)
[2024-12-06] MEDS: MAGNESIUM SULFATE-D5W PMX 1 GM in DEXTROSE/WATER 1 100ML.BAG IVPB SCH (17:54)
[2024-12-06] MEDS: SODIUM CHLORIDE 0.9% 1,000 ML IV SCH (17:58)
[2024-12-06 19:52] LABS: Partial Thromboplastin Time 22.5 sec (22.0-30.0); Prothrombin Time 10.8 sec (10.0-12.5)
[2024-12-06 20:12] LABS: Glucose,Whole Blood 170 mg/dL (70-110)
[2024-12-07] MEDS ORDERED: MELATONIN 5 MG TABLET PO PRN (01:33)
[2024-12-07] MEDS ORDERED: DEXTROSE 50% SYRINGE 50 ML IVP PRN ×2 (05:52)
[2024-12-07 06:26] LABS: Glucose,Whole Blood 107 mg/dL (70-110)
[2024-12-07] MEDS: INSULIN ASPART (NovoLOG) 100 UNIT/ML VIAL SQ SCH (06:43)
[2024-12-07 07:24] LABS: African American GFR (CKD) 45 (>60 ml/min/1.73 sqM); Anion Gap 10 mmol/L; Blood Urea Nitrogen 29 mg/dL (7-17); Calcium 9.1 mg/dL (8.4-10.2); Carbon Dioxide 20 mmol/L (22-30); Chloride 109 mmol/L (98-107); Glucose 95 mg/dL (74-99); Non-African American GFR(CKD) 39 (>60 ml/min/1.73 sqM); Sodium 139 mmol/L (137-145)
[2024-12-07 07:31] LABS: Potassium 4.4 mmol/L (3.5-5.1)
[2024-12-07 07:42] LABS: Basophils % (A) 0 %; Eosinophils # (A) 0.1 k/uL (0-0.7); Eosinophils % (A) 2 %; HCT 26.3 % (34.0-46.0); HGB 8.7 gm/dL (11.4-16.0); Lymphocytes # (A) 1.8 k/uL (1.0-4.8); Lymphocytes % (A) 32 %; MCH 35.1 pg (25.0-35.0); MCHC 33.1 g/dL (31.0-37.0); Macrocytosis Moderate; Mean Platelet Volume 9.4; Monocytes # (A) 0.5 k/uL (0-1.0); Monocytes % (A) 9 %; Neutrophils % (A) 55 %; Platelet Count 169 k/uL (150-450); RBC 2.48 m/uL (3.80-5.40); RDW 13.2 % (11.5-15.5); WBC 5.5 k/uL (3.8-10.6)
[2024-12-07] MEDS: HYDROcodone/APAP 5-325MG 1 EACH TAB PO PRN (08:08)
[2024-12-07] MEDS: ATORVASTATIN 20 MG TAB PO SCH (08:08)
[2024-12-07] MEDS: ASPIRIN 81 MG PO SCH (10:32)
[2024-12-07] MEDS: amLODIPine 5 MG TAB PO SCH (10:32)
[2024-12-07] MEDS: hydroCHLOROthiazide 25 MG TAB PO SCH (10:32)
[2024-12-07] MEDS: lisinopriL 20 MG TAB PO SCH (10:33)
[2024-12-07 11:55] LABS: Glucose,Whole Blood 161 mg/dL (70-110)
--- NOTE | 2024-12-07 12:37 | P.CRDCN ---
History of Present Illness Consult date: 12/07/24 Reason for Consult (text): Syncope History of present illness: This is a 74-year-old female patient of Dr. Hart with past medical history of chronic permanent atrial fibrillation NOT on Eliquis with rate control, coronary artery disease with previous CABG three-vessel VERA to LAD, VG to RI and VG to RCA in 2003, hypertension, dyslipidemia, diabetes mellitus type 2, mitral valve regurgitation. We have been asked to evaluate the patient for syncope. Patient gives history that she was at the [email or web address] and standing in front of a machine and she had her codon she was feeling very hot and the place was very crowded and she apparently had an syncopal episode. Her blood sugar was checked and she was at 91. EMS was called and apparently her blood sugar and blood pressure were okay. Patient was in the office with Dr. Hart on Monday of this week. No medication changes were made. Patient has never had any syncopal episodes before. She does states she has lost 8 pounds over the past [address] 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 She denies having any palpitations. She denies any racing of her heart except when she is walking up a ramp. She denies lightheadedness. She was using a walker to ambulate but has of late been using her to steady herself. Patient states that she has not been on Eliquis and has discussed this with Dr. Hart. Patient is not recall being told that she had anemia in the past. She states she is feeling a little tired now. Orthostatic vital signs were negative. Blood pressure 149/72, heart rate 77, pulse ox 95% on room air. -EKG: Sinus rhythm with first-degree block -Chest x-ray: No acute process -Laboratory studies: WBC 5.5, hemoglobin 8.7. D-dimer 1.17. BUN 29, creatinine 1.34. Troponin negative x 3. -CT of the head and cervical spine -Home cardiac medications: Amlodipine 5 mg daily, aspirin 81 mg daily, Crestor 10 mg daily, Eliquis 5 mg twice daily, hydrochlorothiazide 25 mg daily, lisinopril 40 mg daily. -Cardiac catheterization performed 2018 revealed normal EF, patent VG to RI, patent VERA to LAD, patent VG to RCA, right dominant, DIRECTOR OF PROGRAMMING of the distal left main and critical stenosis involving the RCA. -Echocardiogram performed in the office on 10/08/2024 revealed EF of 52%, severe TR, mild AR, moderate MR, mild , RVSP 52 mmHg. -Event monitor performed in the office 08/2023 revealed atrial fibrillation. -Lexiscan Cardiolite stress test performed in the office on 10/08/2024 revealed normal EF, anterior and anterior lateral ischemia. Findings were similar to those found on a stress test in 2020. Review Of Systems: At the time of my exam: CONSTITUTIONAL: Denies fever or chills. HEENT: Denies blurred vision, vision changes, or eye pain. Denies hemoptysis CARDIOVASCULAR: Denies chest pain. Denies orthopnea. Denies PND. Denies palp itations RESPIRATORY: Denies shortness of breath. GASTROINTESTINAL: Denies abdominal pain. Denies nausea or vomiting. HEMATOLOGIC: Denies bleeding disorders. GENITOURINARY: Denies any blood in urine. SKIN: Denies puritis. Denies rash. Physical examination: Gen: This is a 74-year-old female in no acute distress VS: reviewed HEENT: Head is atraumatic, normocephalic. Pupils equal, round. Sclerae is anicteric. NECK: Supple. No JVD. LUNGS: Clear to auscultation. No wheezes or rhonchi. No intercostal retractions. HEART: Regular rate and rhythm. 2/6 systolic murmur. ABDOMEN: Soft No tenderness. EXTREMITIES: No pedal edema. No calf tenderness. NEUROLOGICAL: Patient is awake, alert and oriented x3. Assessment: Syncope probable vasovagal Anemia of unclear etiology Elevated D-dimer Chronic permanent atrial fibrillation --patient is not on Eliquis Coronary artery disease with previous CABG Dyslipidemia Hypertension Diabetes mellitus type 2 Plan: Resume patient's home cardiac medications No orthostatic changes noted No need to repeat echocardiogram as this was done in September Patient has been instructed to check her blood pressure at home periodically and bring this to her next appointment with Dr. Hart which will be in 1 to 2 weeks. Thank you kindly for this consultation. Nurse practitioner note has been reviewed, I agree with documented findings and plan of care. Patient was seen and examined. Past Medical History Past Medical History: Atrial Fibrillation, Asthma, Cancer, Diabetes Mellitus, Hyperlipidemia, Hypertension, Myocardial Infarction ([place]), Osteoarthritis (OA) Additional Past Medical History / Comment(s): hx. skin cancer Last Myocardial Infarction Date:: 2002 History of Any Multi-Drug Resistant Organisms: None Reported Past Surgical History: Coronary Bypass/CABG, Heart Catheterization With Stent, Orthopedic Surgery, Tonsillectomy Additional Past Surgical History / Comment(s): foot surg., cardioversion, triple bypass, cataracts Past Anesthesia/Blood Transfusion Reactions: No Reported Reaction Date of Last Stent Placement:: unknown Past Psychological History: No Psychological Hx Reported Smoking Status: Never smoker Past Alcohol Use History: Occasional Past Drug Use History: None Reported - Past Family History Brother(s) Family Medical History: Deep Vein Thrombosis (DVT) Medications and Allergies Home Medications Medication Instructions Recorded Confirmed Type metFORMIN HCL [Glucophage] 1,000 mg PO DAILY 07/31/15 12/07/24 History Pioglitazone [Actos] 30 mg PO DAILY 12/06/24 12/06/24 History Rosuvastatin [Crestor] 10 mg PO DAILY 12/06/24 12/06/24 History amLODIPine [Norvasc] 5 mg PO DAILY 12/06/24 12/06/24 History glipiZIDE [Glucotrol] 5 mg PO DAILY 12/06/24 12/07/24 History hydroCHLOROthiazide [Hydrodiuril] 25 mg PO DAILY 12/06/24 12/06/24 History lisinopriL [Zestril] 40 mg PO DAILY 12/06/24 12/06/24 History Aspirin [Adult Low Dose Aspirin EC] 81 mg PO DAILY 12/07/24 12/07/24 History Allergies Allergy/AdvReac Type Severity Reaction Status Date / Time Penicillins Allergy Dyspnea Verified 12/06/24 13:45 Physical Exam Vitals: Vital Signs Temp Pulse Pulse Resp BP BP Pulse Ox 12/07/24 07:00 98.2 F 77 17 154/66 95 12/07/24 01:35 98.3 F 77 18 131/54 95 12/06/24 19:10 97.8 F 84 18 146/66 95 12/06/24 17:59 88 22 127/45 97 12/06/24 13:37 98.0 F 81 20 147/59 100 Intake and Output 12/06/24 12/07/24 12/07/24 22:59 06:59 14:59 Other: Voiding Method Toilet Toilet # Voids 1 1 # Bowel Movements 1 Weight 84.368 kg Results 12/07/24 06:32 12/07/24 06:32 Cardiac Enzymes 12/06/24 12/06/24 12/06/24 Range/Units 13:53 13:53 17:51 AST 17 (14-36) U/L Troponin I 0.021 0.017 (0.000-0.034) ng/mL 12/06/24 Range/Units 18:54 AST (14-36) U/L Troponin I 0.017 (0.000-0.034) ng/mL Coagulation 12/06/24 Range/Units 19:13 PT 10.8 (10.0-12.5) sec APTT 22.5 (22.0-30.0) sec CBC 12/06/24 12/07/24 Range/Units 13:53 06:32 WBC 7.1 5.5 (3.8-10.6) k/uL RBC 2.45 L 2.48 L (3.80-5.40) m/uL Hgb 8.6 L 8.7 L (11.4-16.0) gm/dL Hct 26.2 L 26.3 L (34.0-46.0) % Plt Count 173 169 (150-450) k/uL Comprehensive Metabolic Panel 12/06/24 12/07/24 Range/Units 13:53 06:32 Sodium 139 139 (137-145) mmol/L Potassium 4.3 4.4 (3.5-5.1) mmol/L Chloride 109 H 109 H (98-107) mmol/L Carbon Dioxide 21 L 20 L (22-30) mmol/L BUN 32 H 29 H (7-17) mg/dL Creatinine 1.43 H 1.34 H (0.52-1.04) mg/dL Glucose 104 H 95 (74-99) mg/dL Calcium 9.0 9.1 (8.4-10.2) mg/dL AST 17 (14-36) U/L ALT 11 (4-34) U/L Alkaline Phosphatase 47 (38-126) U/L Total Protein 6.1 L (6.3-8.2) g/dL Albumin 3.4 L (3.5-5.0) g/dL Current Medications Generic Name Dose Route Start Last Admin Trade Name Jakub PRN Reason Stop Dose Admin Acetaminophen 650 mg 12/06/24 17:20 Acetaminophen Tab 325 Mg Tab PO Q6HR PRN Mild Pain or Fever > 100.5 Hydrocodone Bitart/Acetaminophen 1 each 12/06/24 17:20 12/07/24 08:08 Hydrocodone/Apap 5-325mg 1 Each Tab PO 1 each Q4HR PRN Administration Moderate Pain (Scale 4 to 6) Atorvastatin Calcium 20 mg 12/07/24 09:00 12/07/24 08:08 Atorvastatin 20 Mg Tab PO 20 mg DAILY LARA Administration Dextrose/Water 25 ml 12/07/24 05:52 Dextrose 50% Syringe 50 Ml IVP PER PROTOCOL PRN Hypoglycemia Protocol Dextrose/Water 50 ml 12/07/24 05:52 Dextrose 50% Syringe 50 Ml IVP PER PROTOCOL PRN Hypoglycemia Protocol Sodium Chloride 1,000 mls @ 75 mls/hr 12/06/24 17:30 12/07/24 06:44 Saline 0.9% IV 75 mls/hr .[id number] LARA Administration Insulin Aspart 0 unit 12/07/24 07:30 12/07/24 06:43 Insulin Aspart (Novolog) 100 Unit/Ml Vial SQ Not Given ACHS LARA Protocol Melatonin 5 mg 12/07/24 01:33 Melatonin 5 Mg Tablet PO HS PRN Insomnia Naloxone HCl 0.2 mg 12/06/24 17:20 Naloxone 0.4 Mg/Ml 1 Ml Vial IV Q2M PRN Opioid Reversal Ondansetron HCl 4 mg 12/06/24 17:20 Ondansetron 4 Mg/2 Ml Vial IVP Q8HR PRN Nausea And Vomiting Intake and Output 12/06/24 12/07/24 12/07/24 22:59 06:59 14:59 Other: Voiding Method Toilet Toilet # Voids 1 1 # Bowel Movements 1 Weight 84.368 kg 12/07/24 06:32 12/07/24 06:32
[2024-12-07] MEDS: MAGNESIUM SULFATE-D5W PMX 1 GM in DEXTROSE/WATER 1 100ML.BAG IVPB SCH (12:41)
--- NOTE | 2024-12-07 13:06 | P.HPIM ---
History of Present Illness H&P Date: 12/07/24 Chief Complaint: Syncope Patient is a 74-year-old female with paroxysmal atrial fibrillation on Eliquis, diabetes, hypertension, coronary vascular disease with open heart surgery presented to the ED after a syncopal episode. Per ED note, patient was reportedly at the [facility] with her and bystander noted that she stood from a seated position and lost consciousness. Patient was seen at bedside. Patient reported no additional syncopal episodes since the one-time she had yesterday. Patient reported that yesterday she passed out while trying to insert a coin into the machine. Patient denied any prodromal symptoms like chest pain, nausea, vomiting, palpitations, diaphoresis prior to the syncope. She has never had anything like this before. During the fall, patient did hit the right side of her head, did not hit anywhere else. Patient currently denies any pain. Does report a slight headache. Patient currently denies fever, chills, chest pain, shortness of breath, belly pain, nausea or vomiting, lower extremity or upper extremity tingling or numbness, no urinary/bowel incontinence. ED documentation reviewed. In the ED patient was treated with Zofran 4 mg IV x 1, acetaminophen IV 1000 mg x 1, magnesium sulfate 2 g IV Vitals on admission temperature 98.2, pulse rate 77, respiratory rate 17, blood pressure 154/66, O2 sat 95% on room air EKG independently interpreted as sinus rhythm with first-degree AV block with ventricular rate of 84 bpm, right bundle branch block, QTc interval 452 ms CXR shows no acute cardiopulmonary disease/process Labs on admission show WBC 5.5, hemoglobin 8.7, hematocrit 26.3, platelets 169, sodium 139, potassium 4.4, chloride 109, carbon dioxide 28, BUN 29, creatinine 1.34, troponin 0.017 Review of systems: Pertinent positives and negatives as discussed in HPI, a complete review of systems was performed and all other systems are negative. PMH: paroxysmal atrial fibrillation on Eliquis, diabetes, hypertension, coronary vascular disease with open heart surgery PSH: CABG, heart cath with stent, orthopedic surgery, tonsillectomy FMH: Brother had a history of DVT Allergies: Penicillins Social history: Tobacco: Never smoker Alcohol: Occasional Recreational drugs: No reported Travel: No travel history Sick contacts: No sick contacts Physical examination: Vital signs reviewed General: nontoxic, no distress, appears at stated age Derm: warm, dry, intact Head: atraumatic, normocephalic, symmetric Eyes: EOMI, anicteric sclera Mouth: no lip lesion, mucus membranes moist Cardiovascular: S1 S2 reg, no murmur Lungs: CTA bilateral, no rhonchi, no rales, no accessory muscle use Abdominal: soft, non-tender to palpation Extremities: No cyanosis, clubbing, or pedal edema. Neuro: Alert, Gross neurological examination did not reveal any focal deficits. Cranial nerves II to XII grossly intact. Bilateral upper and lower extremity muscle strength and sensation intact. Psych: well appearing, appropriate affect Assessment/Plan: Patient is a 74-year-old female with paroxysmal atrial fibrillation on Eliquis, diabetes, hypertension, coronary vascular disease with open heart surgery presented to the ED after a syncopal episode. Patient will be admitted to the internal medicine service. Active: #. Syncope #. Vasovagal syncope Continue cardiac monitoring Cardiology consulted by ED Obtain D-dimer Fall precautions Obtain hemoglobin A1c Continue aspirin 81 mg Atorvastatin 20 mg daily #. Chronic kidney disease Creatinine 1.34 Monitor morning BMP F: No restrictions E: Replete as needed N: Heart healthy diet A: EMS DVT prophylaxis: Lovenox 40 mg subcu daily The patient is admitted with an anticipated less than 2 midnight stay for evaluation of syncope CODE STATUS: Full code Discussed with: Patient and family Anticipated discharge place: Home Past Medical History Past Medical History: Atrial Fibrillation, Asthma, Cancer, Diabetes Mellitus, Hyperlipidemia, Hypertension, Myocardial Infarction ([place]), Osteoarthritis (OA) Additional Past Medical History / Comment(s): hx. skin cancer Last Myocardial Infarction Date:: 2002 History of Any Multi-Drug Resistant Organisms: None Reported Past Surgical History: Coronary Bypass/CABG, Heart Catheterization With Stent, Orthopedic Surgery, Tonsillectomy Additional Past Surgical History / Comment(s): foot surg., cardioversion, triple bypass, cataracts Past Anesthesia/Blood Transfusion Reactions: No Reported Reaction Date of Last Stent Placement:: unknown Past Psychological History: No Psychological Hx Reported Smoking Status: Never smoker Past Alcohol Use History: Occasional Past Drug Use History: None Reported - Past Family History Brother(s) Family Medical History: Deep Vein Thrombosis (DVT) Medications and Allergies Home Medications Medication Instructions Recorded Confirmed Type metFORMIN HCL [Glucophage] 1,000 mg PO DAILY 07/31/15 12/07/24 History Pioglitazone [Actos] 30 mg PO DAILY 12/06/24 12/06/24 History Rosuvastatin [Crestor] 10 mg PO DAILY 12/06/24 12/06/24 History amLODIPine [Norvasc] 5 mg PO DAILY 12/06/24 12/06/24 History glipiZIDE [Glucotrol] 5 mg PO DAILY 12/06/24 12/07/24 History hydroCHLOROthiazide [Hydrodiuril] 25 mg PO DAILY 12/06/24 12/06/24 History lisinopriL [Zestril] 40 mg PO DAILY 12/06/24 12/06/24 History Aspirin [Adult Low Dose Aspirin EC] 81 mg PO DAILY 12/07/24 12/07/24 History Allergies Allergy/AdvReac Type Severity Reaction Status Date / Time Penicillins Allergy Dyspnea Verified 12/06/24 13:45 Physical Exam Vitals: Vital Signs Temp Pulse Pulse Resp BP BP Pulse Ox 12/07/24 07:00 98.2 F 77 17 154/66 95 12/07/24 01:35 98.3 F 77 18 131/54 95 12/06/24 19:10 97.8 F 84 18 146/66 95 12/06/24 17:59 88 22 127/45 97 12/06/24 13:37 98.0 F 81 20 147/59 100 Intake and Output 12/06/24 12/07/24 12/07/24 22:59 06:59 14:59 Other: Voiding Method Toilet Toilet # Voids 1 1 # Bowel Movements 1 Weight 84.368 kg Results CBC & Chem 7: 12/07/24 06:32 12/07/24 06:32 Labs: Abnormal Lab Results - Last 24 Hours (Table) 12/06/24 12/06/24 12/06/24 Range/Units 13:53 13:53 15:29 RBC 2.45 L (3.80-5.40) m/uL Hgb 8.6 L (11.4-16.0) gm/dL Hct 26.2 L (34.0-46.0) % MCV 106.9 H (80.0-100.0) fL MCH (25.0-35.0) pg Chloride 109 H (98-107) mmol/L Carbon Dioxide 21 L (22-30) mmol/L BUN 32 H (7-17) mg/dL Creatinine 1.43 H (0.52-1.04) mg/dL Glucose 104 H (74-99) mg/dL POC Glucose (mg/dL) (70-110) mg/dL Magnesium 1.3 L (1.6-2.3) mg/dL Total Protein 6.1 L (6.3-8.2) g/dL Albumin 3.4 L (3.5-5.0) g/dL Urine Protein Trace H (Negative) Ur Leukocyte Esterase Small H (Negative) Urine Bacteria Rare H (None) /hpf 12/06/24 12/07/24 12/07/24 Range/Units 20:08 06:32 06:32 RBC 2.48 L (3.80-5.40) m/uL Hgb 8.7 L (11.4-16.0) gm/dL Hct 26.3 L (34.0-46.0) % MCV 106.0 H (80.0-100.0) fL MCH 35.1 H (25.0-35.0) pg Chloride 109 H (98-107) mmol/L Carbon Dioxide 20 L (22-30) mmol/L BUN 29 H (7-17) mg/dL Creatinine 1.34 H (0.52-1.04) mg/dL Glucose (74-99) mg/dL POC Glucose (mg/dL) 170 H (70-110) mg/dL Magnesium (1.6-2.3) mg/dL Total Protein (6.3-8.2) g/dL Albumin (3.5-5.0) g/dL Urine Protein (Negative) Ur Leukocyte Esterase (Negative) Urine Bacteria (None) /hpf
[2024-12-07] MEDS ORDERED: MAGNESIUM SULFATE-D5W PMX 1 GM in DEXTROSE/WATER 1 100ML.BAG IVPB SCH (13:15)
--- NOTE | 2024-12-07 13:17 | P.DS ---
Providers Date of admission: 12/06/24 17:20 Expected date of discharge: 12/07/24 Attending physician: Cindy Roger Consults: 12/06/24 17:20 Consult Physician Urgent Consulting Provider: [facility] Consult Reason/Comments: syncope Do you want consulting provider notified?: Yes Primary care physician: Stated None Hospital Course: Hospital course: Patient is a 74-year-old female with paroxysmal atrial fibrillation on Eliquis, diabetes, hypertension, coronary vascular disease with open heart surgery presented to ED after a syncopal episode. Patient was reportedly at the [facility] with her and bystander noted that she stood from a seated position and lost consciousness. Patient was seen at bedside. Patient reported no additional syncopal episodes since the 1 time she had yesterday. Patient reported that yesterday she is passed out while trying to insert a coin into the machine. Patient denied any prodromal symptoms like chest pain, nausea, vomiting, palpitations, diaphoresis prior to the syncope. In the ED patient was treated with Zofran, acetaminophen, magnesium sulfate 2 g. Cardiology was consulted by the ED. Patient does not need repeat echocardiogram as this was done in September. Cardiology recommended patient to check her blood pressure at home periodically and bring this to her next appointment with Dr. Hart which will be in 1 to 2 weeks. Patient was seen at bedside on 12/07/2024. Reports no acute complaints at this time. Her D-dimer was found to be elevated at 1.17, however given patient is currently asymptomatic as she reports no chest pain or shortness of breath, the likelihood of an underlying PE is probably low. Patient is stable to be discharged back home. No changes were made to her home medication list. Patient is encouraged to follow-up with her enrichment assistant Dr. Hart in 1 to 2 weeks. Physical examination at discharge: GENERAL: This is a 74-year-old in no apparent distress at the time of examination. Pleasant and cooperative. HEENT: Head is atraumatic, normocephalic. Pupils are equal, round, and reactive to light. Sclerae anicteric. Conjunctivae are clear. Mucus membranes of the mouth are moist. Neck is supple. RESPIRATORY: Clear to auscultation. No wheezes, rales, or rhonchi. No use of accessory muscles. Patient maintaining oxygen saturation greater than 92%. No chest wall tenderness is noted on palpation or with deep breathing. CARDIOVASCULAR: Regular rate and rhythm. S1 and S2 noted. No systolic or diastolic murmur auscultated. No JVD noted. No S3 or S4 noted. GASTROINTESTINAL: No distention noted. Abdomen soft and round. Normal active bowel sounds auscultated x 4 quadrants. No pain or tenderness noted upon palpation. INTEGUMENTARY: No cyanosis. No jaundice. No rashes noted. No cellulitis noted. EXTREMITIES: 2+ peripheral pulses. No evidence of peripheral edema. No calf tenderness noted. NEUROLOGIC: Cranial nerves II-XII intact. PSYCHIATRIC: Awake, alert. Appropriate affect. Intact judgement and insight. Patient Condition at Discharge: Stable Plan - Discharge Summary New Discharge Prescriptions: Continue metFORMIN HCL [Glucophage] 1,000 mg PO DAILY Aspirin [Adult Low Dose Aspirin EC] 81 mg PO DAILY glipiZIDE [Glucotrol] 5 mg PO DAILY Rosuvastatin [Crestor] 10 mg PO DAILY Pioglitazone [Actos] 30 mg PO DAILY hydroCHLOROthiazide [Hydrodiuril] 25 mg PO DAILY amLODIPine [Norvasc] 5 mg PO DAILY lisinopriL [Zestril] 40 mg PO DAILY Discharge Medication List metFORMIN HCL [Glucophage] 1,000 mg PO DAILY 07/31/15 [History] Pioglitazone [Actos] 30 mg PO DAILY 12/06/24 [History] Rosuvastatin [Crestor] 10 mg PO DAILY 12/06/24 [History] amLODIPine [Norvasc] 5 mg PO DAILY 12/06/24 [History] glipiZIDE [Glucotrol] 5 mg PO DAILY 12/06/24 [History] hydroCHLOROthiazide [Hydrodiuril] 25 mg PO DAILY 12/06/24 [History] lisinopriL [Zestril] 40 mg PO DAILY 12/06/24 [History] Aspirin [Adult Low Dose Aspirin EC] 81 mg PO DAILY 12/07/24 [History] Follow up Appointment(s)/Referral(s): Kimber Hart MD [STAFF PHYSICIAN] - 1 Week None,Stated [Primary Care Provider] - 1-2 days Discharge Disposition: HOME SELF-CARE
--- NOTE | 2024-12-07 17:33 | CT ---
EXAMINATION TYPE: CT brain cspine wo con DATE OF EXAM: 12/07/2024 5:13 PM COMPARISON: None. CLINICAL INDICATION: Female, 74 years old with history of fall; fall pain TECHNIQUE: Brain: Multiple axial CT images of the brain were obtained without IV contrast. Cspine: Axial CT images from the skull base to the inferior aspect of T2 we obtained without intraven ous contrast. Coronal and sagittal reformatted images were also reviewed. . CT DLP: 1368.7 mGycm, Automated exposure control for dose reduction was used. FINDINGS: Brain: Extra-axial spaces: No abnormal extra-axial fluid collections. Ventricular system: Dilatation in proportion to cerebral atrophy. Cerebral parenchyma: Cerebral atrophy. No acute intraparenchymal hemorrhage or mass effect. The thompson -white junction is well differentiated. Scattered hypoattenuating areas are seen within the white mat ter. Cerebellum: Unremarkable. Mass effect: No evidence of midline shift. Intracranial vasculature: unremarkable Soft tissues: Normal. Calvarium/osseous structures: No depressed skull fracture. Paranasal sinuses and mastoid air cells: Clear. Visualized orbits: Bilateral aphakia Cervical spine: Fracture: None. Osseous structures: Diffuse measured demineralization present. This limits evaluation for fractures. Ankylosis of the C4 C5 C6 vertebral bodies with fusion present. Multilevel degenerative disc disease changes with endplate spurring and disc osteophyte complex's. Vertebral alignment: Within normal limits. Spinal canal/Neural Foramina: No evidence of significant spinal canal narrowing. No evidence for sign ificant neural foraminal stenosis. Neck soft tissues: Prevertebral soft tissues are within normal limits. Other: The airway is patent. The lung apices are clear. Atherosclerosis of the carotid bifurcations. IMPRESSION: 1. No acute intracranial process. 2. Nonspecific white matter changes, likely secondary to chronic small vessel ischemic disease. 3. No evidence of cervical spine fracture. 4. Moderate multilevel degenerative disc disease with fusion of C4-C5 and C6 vertebral bodies. [facility], , 12/07/2024 5:31 PM
[2024-12-07 20:36] LABS: Glucose,Whole Blood 195 mg/dL (70-110)
[2024-12-08 05:22] LABS: Glucose,Whole Blood 139 mg/dL (70-110)
--- NOTE | 2024-12-08 08:45 | P.PN ---
Subjective Progress Note Date: 12/08/24 This is a 74-year-old female patient of Dr. Hart with past medical history of chronic permanent atrial fibrillation NOT on Eliquis with rate control, coronary artery disease with previous CABG three-vessel VERA to LAD, VG to RI and VG to RCA in 2003, hypertension, dyslipidemia, diabetes mellitus type 2, mitral valve regurgitation. We have been asked to evaluate the patient for syncope. Patient gives history that she was at the [employer] and standing in front of a machine and she had her codon she was feeling very hot and the place was very crowded and she apparently had an syncopal episode. Her blood sugar was checked and she was at 91. EMS was called and apparently her blood sugar and blood pressure were okay. Patient was in the office with Dr. Hart on Monday of this week. No medication changes were made. Patient has never had any syncopal episodes before. She does states she has lost 8 pounds over the past 6 [address] Hatch her reporting consultant. She denies having any palpitations. She denies any racing of her heart except when she is walking up a ramp. She denies lightheadedness. She was using a walker to ambulate but has of late been using her to steady herself. Patient states that she has not been on Eliquis and has discussed this with Dr. Hart. Patient is not recall being told that she had anemia in the past. She states she is feeling a little tired now. Orthostatic vital signs were negative. Blood pressure 149/72, heart rate 77, pulse ox 95% on room air. -EKG: Sinus rhythm with first-degree block -Chest x-ray: No acute process -Laboratory studies: WBC 5.5, hemoglobin 8.7. D-dimer 1.17. BUN 29, creatinine 1.34. Troponin negative x 3. -CT of the head and cervical spine -Home cardiac medications: Amlodipine 5 mg daily, aspirin 81 mg daily, Crestor 10 mg daily, Eliquis 5 mg twice daily, hydrochlorothiazide 25 mg daily, lisinopril 40 mg daily. -Cardiac catheterization performed 2018 revealed normal EF, patent VG to RI, patent VERA to LAD, patent VG to RCA, right dominant, AGITATOR OPERATOR of the distal left main and critical stenosis involving the RCA. -Echocardiogram performed in the office on 10/08/2024 revealed EF of 52%, severe TR, mild AR, moderate MR, mild , RVSP 52 mmHg. -Event monitor performed in the office 08/2023 revealed atrial fibrillation. -Lexiscan Cardiolite stress test performed in the office on 10/08/2024 revealed normal EF, anterior and anterior lateral ischemia. Findings were similar to th ose found on a stress test in 2020. 12/08/24 Patient seen and examined. Yesterday, patient had episodes of bradycardia in the 30s at 9:30 am and 2 second pause. Patient has remained in sinus rhythm. Patient denies chest pain or pressure, no lightheadedness or dizziness. She states she feels sore. Telemetry reviewed. No significant pauses that would require a pacemaker. Patient updated. Physical examination: Gen: This is a 74-year-old female in no acute distress VS: reviewed HEENT: Head is atraumatic, normocephalic. Pupils equal, round. Sclerae is anicteric. NECK: Supple. No JVD. LUNGS: Clear to auscultation. No wheezes or rhonchi. No intercostal retractions. HEART: Regular rate and rhythm. 2/6 systolic murmur. ABDOMEN: Soft No tenderness. EXTREMITIES: No pedal edema. No calf tenderness. NEUROLOGICAL: Patient is awake, alert and oriented x3. Assessment: Syncope probable vasovagal Anemia of unclear etiology Elevated D-dimer Bradycardia Chronic permanent atrial fibrillation --patient is not on Eliquis Coronary artery disease with previous CABG Dyslipidemia Hypertension Diabetes mellitus type 2 Plan: Continue patient's home cardiac medications No orthostatic changes noted No need to repeat echocardiogram as this was done in September Patient has been instructed to check her blood pressure at home periodically and bring this to her next appointment with Dr. Hart which will be in 1 to 2 weeks. Patient may follow up in the office for longer event monitor. Patient is cleared for discharge. Nurse practitioner note has been reviewed, I agree with documented findings and plan of care. Patient was seen and examined. Objective - Vital Signs Vital signs: Vital Signs Temp 98.5 F 12/08/24 01:38 Pulse 68 12/08/24 01:38 Resp 18 12/08/24 07:46 BP 120/62 12/08/24 01:38 Pulse Ox 97 12/08/24 01:38 FiO2 Intake & Output 12/07/24 12/08/24 12/08/24 18:59 06:59 18:59 Intake Total 218 Balance 218 Intake: Intake, IV Titration 100 Amount Magnesium Sulfate-D5w Pmx 100 1 gm In Dextrose/Water 1 100ml.bag @ 100 mls/hr IVPB Q1H [facility] Rx#: [id number] Oral 118 Other: Voiding Method Toilet Toilet Toilet # Voids 3 # Bowel Movements 1 - Labs CBC & Chem 7: 12/07/24 06:32 12/07/24 06:32 Labs: Abnormal Lab Results - Last 24 Hours (Table) 12/07/24 12/07/24 12/07/24 Range/Units 10:21 11:54 20:22 D-Dimer 1.17 H (<0.60) mg/L FEU POC Glucose (mg/dL) 161 H 195 H (70-110) mg/dL 12/08/24 Range/Units 05:21 D-Dimer (<0.60) mg/L FEU POC Glucose (mg/dL) 139 H (70-110) mg/dL
[2024-12-08 12:11] LABS: Glucose,Whole Blood 169 mg/dL (70-110)
--- NOTE | 2024-12-08 13:28 | P.PN ---
Subjective Hospital course: Patient is a 74-year-old female with paroxysmal atrial fibrillation on Eliquis, diabetes, hypertension, coronary vascular disease with open heart surgery presented to ED after a syncopal episode. Patient was reportedly at the [facility] with her and bystander noted that she stood from a seated position and lost consciousness. Patient was seen at bedside. Patient reported no additional syncopal episodes since the 1 time she had yesterday. Patient reported that yesterday she is passed out while trying to insert a coin into the machine. Patient denied any prodromal symptoms like chest pain, nausea, vomiting, palpitations, diaphoresis prior to the syncope. In the ED patient was treated with Zofran, acetaminophen, magnesium sulfate 2 g. Cardiology was consulted by the ED. Patient does not need repeat echo cardiogram as this was done in September. Cardiology recommended patient to check her blood pressure at home periodically and bring this to her next appointment with Dr. Hart which will be in 1 to 2 weeks. Patient was seen at bedside on 12/07/2024. Reports no acute complaints at this time. Her D-dimer was found to be elevated at 1.17, however given patient is currently asymptomatic as she reports no chest pain or shortness of breath, the likelihood of an underlying PE is probably low. Patient is stable to be discharged back home. No changes were made to her home medication list. Patient is encouraged to follow-up with her wash barrel leader Dr. Hart in 1 to 2 weeks. 12/08/2024 Patient fell while she was trying to take a shower, she hit her head and back and left hand, there is some a bruise in the left middle finger. Improving Patient denies confusion. Patient denies syncope. Patient evaluated by wash barrel leader and cleared her for discharge She still complaining from pain in her right lower back. After few fell without head and cervical spine CT repeated which showing degenerative disc disease with no acute fracture or intracranial process Also family concerned about increasing phlegm, with her chest pain we going to repeat chest x-ray Check labs Keep monitoring Patient is very eager to go home today. But she agrees for this workup for now Family at bedside also agreeable with the plan Check vitamin B12 and TSH as well Objective - Vital Signs Vital signs: Vital Signs Temp 98.1 F 12/08/24 07:00 Pulse 74 12/08/24 07:00 Resp 18 12/08/24 07:46 BP 150/79 12/08/24 07:00 Pulse Ox 100 12/08/24 07:00 FiO2 Intake & Output 12/07/24 12/08/24 12/08/24 18:59 06:59 18:59 Intake Total 218 Balance 218 Intake: Intake, IV Titration 100 Amount Magnesium Sulfate-D5w Pmx 100 1 gm In Dextrose/Water 1 100ml.bag @ 100 mls/hr IVPB Q1H [facility] Rx#: [id number] Oral 118 Other: Voiding Method Toilet Toilet Toilet # Voids 3 # Bowel Movements 1 - Exam -GENERAL: The patient is alert and oriented x3, not in any acute distress. Well developed, well nourished. Generally weak HEENT: Pupils are round and equally reacting to light. EOMI. No scleral icterus. No conjunctival pallor. Normocephalic, atraumatic. No pharyngeal erythema. No thyromegaly. CARDIOVASCULAR: S1 and S2 present. No murmurs, rubs, or gallops. PULMONARY: Chest is clear to auscultation, no wheezing , no crackles. ABDOMEN: Soft, nontender, nondistended, normoactive bowel sounds. No palpable organomegaly. MUSCULOSKELETAL: No joint swelling or deformity. EXTREMITIES: No cyanosis, clubbing, or pedal edema. NEUROLOGICAL: Gross neurological examination did not reveal any focal deficits. SKIN: No rashes. no petechiae. - Labs CBC & Chem 7: 12/07/24 06:32 12/07/24 06:32 Labs: Abnormal Lab Results - Last 24 Hours (Table) 12/07/24 12/08/24 12/08/24 Range/Units 20:22 05:21 12:10 POC Glucose (mg/dL) 195 H 139 H 169 H (70-110) mg/dL Assessment and Plan Assessment: Active: #. Recurrent falls. Check TSH vitamin B12, check regular labs. Check chest x- ray as patient complains of increased coughing #. Syncope #. Vasovagal syncope Continue cardiac monitoring Cardiology consulted by ED Obtain D-dimer Fall precautions Obtain hemoglobin A1c Continue aspirin 81 mg Atorvastatin 20 mg daily #. Chronic kidney disease Creatinine 1.34 Monitor morning BMP F: No restrictions E: Replete as needed N: Heart healthy diet A: EMS DVT prophylaxis: Lovenox 40 mg subcu daily The patient is admitted with an anticipated less than 2 midnight stay for evaluation of syncope CODE STATUS: Full code Discussed with: Patient and family Anticipated discharge place: Home
--- NOTE | 2024-12-08 13:58 | XR ---
EXAMINATION TYPE: XR chest 1V DATE OF EXAM: 12/08/2024 1:53 PM COMPARISON: None. CLINICAL INDICATION: Female, 74 years old with history of fall and pain in the back right lower ribs, TECHNIQUE: XR chest 1V view(s) obtained. FINDINGS: The heart size is enlarged. The pulmonary vasculature is normal. Minimal atelectasis along the left diaphragm. There may be a small left pleural effusion. IMPRESSION: 1. Minimal left basilar atelectasis. 2. Minimal left pleural effusion within the costophrenic angle [facility], , 12/08/2024 1:56 PM
[2024-12-08 15:27] LABS: Basophils % (A) 0 %; Eosinophils # (A) 0.1 k/uL (0-0.7); Eosinophils % (A) 4 %; HCT 26.6 % (34.0-46.0); HGB 8.8 gm/dL (11.4-16.0); Lymphocytes % (A) 25 %; MCH 34.9 pg (25.0-35.0); MCHC 33.1 g/dL (31.0-37.0); MCV 105.5 fL (80.0-100.0); Macrocytosis Slight; Mean Platelet Volume 8.2; Monocytes # (A) 0.3 k/uL (0-1.0); Monocytes % (A) 8 %; Neutrophils # (A) 2.4 k/uL (1.3-7.7); Neutrophils % (A) 61 %; Platelet Count 159 k/uL (150-450); RBC 2.52 m/uL (3.80-5.40); RDW 13.1 % (11.5-15.5); WBC 3.9 k/uL (3.8-10.6)
[2024-12-08 15:37] LABS: African American GFR (CKD) 46 (>60 ml/min/1.73 sqM); Anion Gap 7 mmol/L; Blood Urea Nitrogen 23 mg/dL (7-17); Calcium 9.3 mg/dL (8.4-10.2); Carbon Dioxide 23 mmol/L (22-30); Chloride 106 mmol/L (98-107); Glucose 142 mg/dL (74-99); Non-African American GFR(CKD) 40 (>60 ml/min/1.73 sqM); Sodium 136 mmol/L (137-145)
[2024-12-08 15:43] LABS: Magnesium 1.9 mg/dL (1.6-2.3); Potassium 4.6 mmol/L (3.5-5.1)
[2024-12-08 17:00] LABS: Glucose,Whole Blood 174 mg/dL (70-110)
[2024-12-08 20:36] LABS: Glucose,Whole Blood 209 mg/dL (70-110)
[2024-12-08 23:13] LABS: Vitamin B12 <150.0 pg/mL (200.0-944.0)
[2024-12-09 06:05] LABS: Glucose,Whole Blood 127 mg/dL (70-110)
[2024-12-09 07:40] VITALS: BP 165/73; PULSE 69; RESP 16; TEMP 97.7
--- NOTE | 2024-12-09 11:27 | P.PN ---
Subjective HISTORY OF PRESENT ILLNESS: This is a 74-year-old female patient of Dr. Hart with past medical history of atrial fibrillation, coronary artery disease with previous CABG three-vessel VERA to LAD, VG to RI and VG to RCA in 2003, hypertension, dyslipidemia, diabetes mellitus type 2, mitral valve regurgitation. We have been asked to evaluate the patient for syncope. Patient gives history that she was at the [employer] and standing in front of a machine and she had her codon she was feeling very hot and the place was very crowded and she apparently had an syncopal episode. Her blood sugar was checked and she was at 91. EMS was called and apparently her blood sugar and blood pressure were okay. Patient was in the office with Dr. Hart on Monday of this week. No medication changes were made. Patient has never had any syncopal episodes before. She does states she has lost 8 pounds over the past 6 [address] 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 She denies having any palpitations. She denies any racing of her heart except when she is walking up a ramp. She denies lightheadedness. She was using a walker to ambulate but has of late been using her to steady herself. Patient states that she has not been on Eliquis and has discussed this with Dr. Hart. Patient is not recall being told that she had anemia in the past. She states she is feeling a little tired now. Orthostatic vital signs were negative. Blood pressure 149/72, heart rate 77, pulse ox 95% on room air. -EKG: Sinus rhythm with first-degree block -Chest x-ray: No acute process -Laboratory studies: WBC 5.5, hemoglobin 8.7. D-dimer 1.17. BUN 29, creatinine 1.34. Troponin negative x 3. -CT of the head and cervical spine -Home cardiac medications: Amlodipine 5 mg daily, aspirin 81 mg daily, Crestor 10 mg daily, Eliquis 5 mg twice daily, hydrochlorothiazide 25 mg daily, lisinopril 40 mg daily. -Cardiac catheterization performed 2018 revealed normal EF, patent VG to RI, patent VERA to LAD, patent VG to RCA, right dominant, BEHAVIOR ANALYST of the distal left main and critical stenosis involving the RCA. -Echocardiogram performed in the office on 10/08/2024 revealed EF of 52%, severe TR, mild AR, moderate MR, mild , RVSP 52 mmHg. -Event monitor performed in the office 08/2023 revealed atrial fibrillation. -Lexiscan Cardiolite stress test performed in the office on 10/08/2024 revealed normal EF, anterior and anterior lateral ischemia. Findings were similar to those found on a stress test in 2020. 12/08/24 Patient seen and examined. Yesterday, patient had episodes of bradycardia in the 30s at 9:30 am and 2 second pause. Patient has remained in sinus rhythm. Patient denies chest pain or pressure, no lightheadedness or dizziness. She states she feels sore. Telemetry reviewed. No significant pauses that would require a p acemaker. Patient updated. 12/09/2024 Patient examined this morning. Patient is sitting up in the chair. Patient denies any chest pain or pressure. She denies any shortness of breath. Denies any dizziness or lightheadedness. Telemetry reviewed revealing sinus mechanism with no significant bradycardia or pauses noted. 12/09/2024 PHYSICAL EXAM: VITAL SIGNS: Reviewed. GENERAL: Well-developed in no acute distress. NECK: Supple. No JVD or thyromegaly LUNGS: Respirations even and unlabored. Lungs essentially clear to auscultation bilaterally. HEART: Regular rate and rhythm. S1 and S2 heard. EXTREMITIES: Normal range of motion. No clubbing or cyanosis. Peripheral pulses intact. No lower extremity edema ASSESSMENT: Syncope probable vasovagal Anemia of unclear etiology Bradycardia Paroxysmal atrial fibrillation, not on anticoagulation due to chronic anemia, currently maintaining sinus mechanism Coronary artery disease with previous three-vessel CABG, 2003 Dyslipidemia Hypertension Diabetes mellitus type 2 PLAN: Continue current cardiac medications Patient may be discharged home today from a cardiac standpoint Patient to pear picker 2-week event monitor from the cardiology office at the time of discharge Patient to follow-up postdischarge with Dr. Hart in 3 weeks Nurse practitioner note has been reviewed by physician. Signing provider agrees with the documented findings, assessment, and plan of care documented by DIRECTOR OF COMMUNITY CENTER as a scribe. Objective - Vital Signs Vital signs: Vital Signs Temp 97.7 F 12/09/24 07:00 Pulse 69 12/09/24 07:00 Resp 16 12/09/24 07:00 BP 165/73 12/09/24 07:00 Pulse Ox 98 12/09/24 07:00 FiO2 Intake & Output 12/08/24 12/09/24 12/09/24 18:59 06:59 18:59 Intake Total 118 120 118 Balance 118 120 118 Intake: Oral 118 120 118 Other: Voiding Method Toilet Toilet Toilet # Voids 2 1 - Labs CBC & Chem 7: 12/08/24 15:05 12/08/24 15:05 Labs: Abnormal Lab Results - Last 24 Hours (Table) 12/08/24 12/08/24 12/08/24 Range/Units 12:10 15:05 15:05 RBC 2.52 L (3.80-5.40) m/uL Hgb 8.8 L (11.4-16.0) gm/dL Hct 26.6 L (34.0-46.0) % MCV 105.5 H (80.0-100.0) fL Sodium 136 L (137-145) mmol/L BUN 23 H (7-17) mg/dL Creatinine 1.30 H (0.52-1.04) mg/dL Glucose 142 H (74-99) mg/dL POC Glucose (mg/dL) 169 H (70-110) mg/dL Vitamin B12 <150.0 L (200.0-944.0) pg/mL 12/08/24 12/08/24 12/09/24 Range/Units 16:59 20:34 06:03 RBC (3.80-5.40) m/uL Hgb (11.4-16.0) gm/dL Hct (34.0-46.0) % MCV (80.0-100.0) fL Sodium (137-145) mmol/L BUN (7-17) mg/dL Creatinine (0.52-1.04) mg/dL Glucose (74-99) mg/dL POC Glucose (mg/dL) 174 H 209 H 127 H (70-110) mg/dL Vitamin B12 (200.0-944.0) pg/mL
[2024-12-09 12:18] LABS: Glucose,Whole Blood 249 mg/dL (70-110)
--- NOTE | 2024-12-09 13:36 | P.DS ---
Providers Date of admission: 12/06/24 17:20 Expected date of discharge: 12/09/24 Attending physician: Cindy Roger Consults: 12/06/24 17:20 Consult Physician Urgent Consulting Provider: [facility] Consult Reason/Comments: syncope Do you want consulting provider notified?: Yes Primary care physician: Stated None Hospital Course: Hospital Course: Hospital course: Patient is a 74-year-old female with paroxysmal atrial fibrillation on Eliquis, diabetes, hypertension, coronary vascular disease with open heart surgery presented to ED after a syncopal episode. Patient was reportedly at the [facility] with her and bystander noted that she stood from a seated position and lost consciousness. Patient was seen at bedside. Patient reported no additional syncopal episodes since the 1 time she had yesterday. Patient reported that yesterday she is passed out while trying to insert a coin into the machine. Patient denied any prodromal symptoms like chest pain, nausea, vomiting, palpitations, diaphoresis prior to the syncope. In the ED patient was treated with Zofran, acetaminophen, magnesium sulfate 2 g. Cardiology was consulted by the ED. Patient does not need repeat echocardiogram as this was done in September. Cardiology recommended patient to check her blood pressure at home periodically and bring this to her next appointment with Dr. Hart which will be in 1 to 2 weeks. Patient was seen at bedside on 12/07/2024. Reports no acute complaints at this time. Her D-dimer was found to be elevated at 1.17, however given patient is currently asymptomatic as she reports no chest pain or shortness of breath, the likelihood of an underlying PE is probably low. Patient was supposed to be discharged on 12/07/2024. However, patient did have a fall in the bathroom due to loss of balance before she got discharged therefore patient had to stay in the hospital for next [address] was ordered which showed no acute intracranial process and no evidence of cervical spine fracture. Patient was reassessed on 12/26/2024 and reported no acute complaints. Patient requested a Scott prescription to go home with for her pain. Patient is stable to be discharged back home. MiraLAX 17 g daily and Scott 5325 prescribed for the next 7 days. Patient is encouraged to follow-up with her housekeeper caregiver Dr. Hart in 1 to 2 weeks. Physical examination at discharge: GENERAL: This is a 74-year-old in no apparent distress at the time of examination. Pleasant and cooperative. HEENT: Head is atraumatic, normocephalic. Pupils are equal, round, and reactive to light. Sclerae anicteric. Conjunctivae are clear. Mucus membranes of the mouth are moist. Neck is supple. RESPIRATORY: Clear to auscultation. No wheezes, rales, or rhonchi. No use of accessory muscles. Patient maintaining oxygen saturation greater than 92%. No chest wall tenderness is noted on palpation or with deep breathing. CARDIOVASCULAR: Regular rate and rhythm. S1 and S2 noted. No systolic or diastolic murmur auscultated. No JVD noted. No S3 or S4 noted. GASTROINTESTINAL: No distention noted. Abdomen soft and round. Normal active bowel sounds auscultated x 4 quadrants. No pain or tenderness noted upon palpation. INTEGUMENTARY: No cyanosis. No jaundice. No rashes noted. No cellulitis noted. EXTREMITIES: 2+ peripheral pulses. No evidence of peripheral edema. No calf tenderness noted. NEUROLOGIC: Cranial nerves II-XII intact. PSYCHIATRIC: Awake, alert. Appropriate affect. Intact judgement and insight. Patient Condition at Discharge: Stable Plan - Discharge Summary New Discharge Prescriptions: New polyethylene glycoL 3350 [Miralax] 17 gm PO DAILY #7 packet HYDROcodone/APAP 5-325MG [Scott 5-325] 1 tab PO BID #15 tab Continue metFORMIN HCL [Glucophage] 1,000 mg PO DAILY Aspirin [Adult Low Dose Aspirin EC] 81 mg PO DAILY glipiZIDE [Glucotrol] 5 mg PO DAILY Rosuvastatin [Crestor] 10 mg PO DAILY Pioglitazone [Actos] 30 mg PO DAILY hydroCHLOROthiazide [Hydrodiuril] 25 mg PO DAILY amLODIPine [Norvasc] 5 mg PO DAILY lisinopriL [Zestril] 40 mg PO DAILY Discharge Medication List metFORMIN HCL [Glucophage] 1,000 mg PO DAILY 07/31/15 [History] Pioglitazone [Actos] 30 mg PO DAILY 12/06/24 [History] Rosuvastatin [Crestor] 10 mg PO DAILY 12/06/24 [History] amLODIPine [Norvasc] 5 mg PO DAILY 12/06/24 [History] glipiZIDE [Glucotrol] 5 mg PO DAILY 12/06/24 [History] hydroCHLOROthiazide [Hydrodiuril] 25 mg PO DAILY 12/06/24 [History] lisinopriL [Zestril] 40 mg PO DAILY 12/06/24 [History] Aspirin [Adult Low Dose Aspirin EC] 81 mg PO DAILY 12/07/24 [History] HYDROcodone/APAP 5-325MG [Scott 5-325] 1 tab PO BID #15 tab 12/09/24 [Rx] polyethylene glycoL 3350 [Miralax] 17 gm PO DAILY #7 packet 12/09/24 [Rx] Follow up Appointment(s)/Referral(s): Kimber Hart MD [STAFF PHYSICIAN] - 12/31/24 9:00 am None,Stated [Primary Care Provider] - 1-2 days Patient Instructions/Handouts: Syncope (DC) Activity/Diet/Wound Care/Special Instructions: outpatient monitor to be applied/picked up at dr stone office after discharge. Discharge Disposition: HOME SELF-CARE
== END 2024-12-09 14:27 | disposition home or self-care (01) ==
LOC: EC 13:15 → 6NMEDSUR 17:20
PROVIDERS: ADMIT Hospitalist; ATTEND Hospitalist
DX: R55 Syncope and collapse (principal); I48.21 Permanent atrial fibrillation; E11.22 Type 2 diabetes mellitus with diabetic chronic kidney disease; D63.1 Anemia in chronic kidney disease; I12.9 Hypertensive chronic kidney disease with stage 1 through stage 4 chronic kidney disease, or unspecified chronic kidney disease; N18.9 Chronic kidney disease, unspecified; R79.89 Other specified abnormal findings of blood chemistry; E78.5 Hyperlipidemia, unspecified; S09.90XA Unspecified injury of head, initial encounter; W19.XXXA Unspecified fall, initial encounter; E83.42 Hypomagnesemia; I25.10 Atherosclerotic heart disease of native coronary artery without angina pectoris; R00.1 Bradycardia, unspecified; I25.2 Old myocardial infarction; R29.6 Repeated falls; Z85.828 Personal history of other malignant neoplasm of skin; Z95.5 Presence of coronary angioplasty implant and graft; Z79.01 Long term (current) use of anticoagulants; Z79.82 Long term (current) use of aspirin; Z79.84 Long term (current) use of oral hypoglycemic drugs; Z79.899 Other long term (current) drug therapy; Z88.0 Allergy status to penicillin
CPT/HCPCS: 96366 ×2; 96368; 96365; 96375; 99285; 36415; 85379; 80053; 80048 ×2; 84443; 82607; 83735 ×3; 84484; 85025 ×3; 85610; 85730; 81001; 83036; 71045; 71046; 72125 ×2; 70450 ×2; G0378 ×4; J2405; J3475 ×2; J0131; 93005

== ENCOUNTER → 2024-12-31 | Outpatient (CLI) | payer MEDICARE ==
[2024-12-31 19:11] LABS: BUN/Creat Ratio 16.12 Ratio (12.00-20.00); Blood Urea Nitrogen 25.8 mg/dL (9.0-27.0); Calcium 9.6 mg/dL (8.7-10.3); Carbon Dioxide 21.9 mmol/L (21.6-31.8); Chloride 108 mmol/L (96-109); Glucose 60 mg/dL (70-110); Magnesium 1.5 mg/dL (1.5-2.4); Potassium 4.5 mmol/L (3.5-5.5); Sodium 143 mmol/L (135-145)
[2024-12-31 19:13] LABS: MCH 33.8 pg (27.0-32.0); MCHC 31.3 g/dL (32.0-37.0); MCV 108.1 FL (80.0-97.0); Mean Platelet Volume 11.7 FL (9.5-12.2); NRBC Per 100 WBC 0 X 10*3/uL (0.00-0.01); Platelet Count 203 X 10*3/uL (140-440); RBC 2.96 X 10*6/uL (4.10-5.20); RDW 13.2 % (11.5-14.5); WBC 5.63 X 10*3/uL (4.50-10.00)
== END | disposition home or self-care (01) ==
LOC: LABWHC1 10:53
PROVIDERS: ATTEND Internal Medicine Interventional Cardiology
DX: E83.42 Hypomagnesemia (principal); D64.9 Anemia, unspecified
CPT/HCPCS: 36415; 80048; 83735; 85027

== ENCOUNTER 2025-04-10 10:02 | Inpatient (IN) | payer MEDICARE ==
[~2025-04-10 10:02] MED LIST changes: -ALPRAZolam 0.25 MG TAB PO PRN; -ALPRAZolam 0.5 MG TAB PO PRN; -ASPIRIN 325 MG TAB PO STA; -ASPIRIN 81 MG PO SCH; -ATORVASTATIN 20 MG TAB PO SCH; -ATORVASTATIN 80 MG TAB PO STA; -HEPARIN SODIUM 1,000 UN/ML (10ML VL) ONE; -INSULIN GLARGINE 36 UNIT SQ SCH; -IOPAMIDOL-370 100ML BTL INJ ONE; -IOPAMIDOL-370 125ML BTL INJ ONE; -LIDOCAINE 1% INJ 10MG/ML (20 ML MDV) ONE; -LISINOPRIL 20 MG TAB PO SCH; -LISINOPRIL 20 MG TAB PO STA; -NITROGLYCERIN SL TABS 0.4 MG TAB SUBLINGUAL ONE; -NITROGLYCERIN SL TABS 0.4 MG TAB SUBLINGUAL PRN; -NON-FORMULARY DRUG (Liraglutide [Victoza 2-Pak] 1.2 MG) SQ SCH; -RX INFO: IV CONTRAST WAS GIVEN 1 EACH MISC MISCELLANE PRN; -SODIUM CHLORIDE 0.9% 1,000 ML IV ONE; -SODIUM CHLORIDE 0.9% 1,000 ML IV SCH; -SODIUM CHLORIDE 0.9% 1,000 ML in EMPTY BAG 1 BAG IV ONE; -VERAPAMIL 2.5 MG/ML 2 ML AMP ONE; -amLODIPine 5 MG TAB PO STA; +ceFAZolin 2 GM in DEXTROSE 5% IN WATER 50 ML IVPB SCH; -fentaNYL (PF) 50 MCG/ML 2 ML AMP ONE
[2025-04-10] MEDS: SODIUM CHLORIDE 0.9% 1,000 ML IV ONE (10:56)
[2025-04-10 11:09] LABS: Basophils # (A) 0.03 10*3/uL (0.00-0.10); Basophils % (A) 0.4 %; Eosinophils # (A) 0.01 10*3/uL (0.04-0.35); Eosinophils % (A) 0.1 %; HCT 27.6 % (37.2-46.3); HGB 9.2 g/dL (12.0-15.0); Lymphocytes # (A) 1.96 10*3/uL (0.90-5.00); Lymphocytes % (A) 26.2 %; MCH 34.5 pg (27.0-32.0); MCHC 33.3 g/dL (32.0-37.0); MCV 103.4 fL (80.0-97.0); Mean Platelet Volume 10.9 fL (9.5-12.2); Monocytes # (A) 0.58 10*3/uL (0.20-1.00); Monocytes % (A) 7.8 %; Neutrophils # (A) 4.88 10*3/uL (1.80-7.70); Neutrophils % (A) 65.2 %; Platelet Count 223 10*3/uL (140-440); RBC 2.67 10*6/uL (4.10-5.20); RDW 15.5 % (11.5-14.5); WBC 7.48 10*3/uL (4.50-10.00)
--- NOTE | 2025-04-10 11:14 | XR ---
EXAMINATION TYPE: XR chest 1V portable DATE OF EXAM: 04/10/2025 11:05 AM COMPARISON: Chest radiographs from 12/08/2024. CLINICAL INDICATION: Female, 75 years old with history of recent watchmen placement. weakness; [facility] TECHNIQUE: XR chest 1V portable Frontal view of the chest. FINDINGS: Lungs/Pleura: There is no evidence of pleural effusion, focal consolidation, or pneumothorax. Pulmonary vascularity: Unremarkable. Heart/mediastinum: Cardiomediastinal silhouette is enlarged. Atherosclerotic calcifications are seen in the aorta. Watch man device not well appreciated on this exam. Musculoskeletal: No acute osseous pathology. Midline sternotomy wires are noted. Other findings: None IMPRESSION: 1. No acute cardiopulmonary disease/process. 2. Cardiomegaly. [facility], , 04/10/2025 11:12 AM
[2025-04-10 11:28] LABS: ALT 12 U/L (4-34); African American GFR (CKD) 37 (>60 ml/min/1.73 sqM); Albumin 3.9 g/dL (3.5-5.0); Anion Gap 15 mmol/L; Blood Urea Nitrogen 31 mg/dL (7-17); Calcium 9.4 mg/dL (8.4-10.2); Carbon Dioxide 18 mmol/L (22-30); Chloride 103 mmol/L (98-107); Glucose 87 mg/dL (74-99); Non-African American GFR(CKD) 32 (>60 ml/min/1.73 sqM); Sodium 136 mmol/L (137-145); Total Bilirubin 0.7 mg/dL (0.2-1.3); Total Protein 6.8 g/dL (6.3-8.2)
[2025-04-10 11:37] LABS: NT-Pro-B-Type Natriuretic Pept 5440 pg/mL
[2025-04-10 11:51] LABS: INR 1.2 (<1.2); Partial Thromboplastin Time 25.1 sec (22.0-30.0); Prothrombin Time 12.5 sec (10.0-12.5)
[2025-04-10 12:00] LABS: AST 22 U/L (14-36); Alkaline Phosphatase 39 U/L (38-126); Magnesium 1.3 mg/dL (1.6-2.3); Potassium 4.6 mmol/L (3.5-5.1)
[2025-04-10] MEDS ORDERED: ONDANSETRON 4 MG/2 ML VIAL IVP PRN (12:52)
[2025-04-10] MEDS ORDERED: NALOXONE 0.4 MG/ML 1 ML VIAL IV PRN (12:52)
--- NOTE | 2025-04-10 12:55 | ED ---
General Adult HPI - General Chief complaint: Weakness Stated complaint: heart issue Time Seen by Provider: 04/10/25 10:20 Source: patient, RN notes reviewed, old records reviewed Mode of arrival: ambulatory Limitations: no limitations - History of Present Illness Initial comments: Patient is a 75-year-old female presents emergency department complaining of weakness. Recently had Watchman device placed by a physician at [facility]. Follows up with Dr. Hart. Has a history of atrial fibrillation status post ablation, diabetes, hypertension, hyperlipidemia. Has a history of bypass as well. Was going to stay at [facility] yesterday however she went to go home. She was having bradycardia. However she did elect to go home but today at home she was more bradycardic. States she would drop in the 30s 40s and 50s. Presents for further evaluation at this time. Was found to be hypotensive in triage and sent to trauma bay 1. She endorses just general weakness but no chest pain, no shortness of breath. No nausea or vomiting. No diaphoresis. No abdominal pain. Presents for further evaluation at this time. - Related Data Home Medications Medication Instructions Recorded Confirmed metFORMIN HCL [Glucophage] 1,000 mg PO BID 07/31/15 04/10/25 Pioglitazone [Actos] 30 mg PO DAILY 12/06/24 04/10/25 Rosuvastatin [Crestor] 10 mg PO DAILY 12/06/24 04/10/25 amLODIPine [Norvasc] 5 mg PO DAILY 12/06/24 04/10/25 glipiZIDE [Glucotrol] 5 mg PO BID 12/06/24 04/10/25 lisinopriL [Zestril] 40 mg PO DAILY 12/06/24 04/10/25 Aspirin [Adult Low Dose Aspirin EC] 81 mg PO HS 12/07/24 04/10/25 Magnesium Oxide [Mag-Ox] 400 mg PO DAILY 04/10/25 04/10/25 Mv-Mn/Folic Acid/K1/Herb 357 1 tab PO MOTH 04/10/25 04/10/25 [Alive Women's 50 Plus Ultra Tb] Allergies Allergy/AdvReac Type Severity Reaction Status Date / Time Penicillins Allergy Dyspnea Verified 04/10/25 11:51 Review of Systems ROS Statement: Those systems with pertinent positive or pertinent negative responses have been documented in the HPI. Review of Systems: CONST: Denies fever EYES: Denies blurry vision ENT: Denies nasal congestion C/V: Denies Chest pain RESP: Denies shortness of breath GI: Denies abdominal pain : Denies dysuria SKIN: Denies rash. MSK: Denies joint pain. NEURO: Denies headache ROS Other: All systems not noted in ROS Statement are negative. Past Medical History Past Medical History: Atrial Fibrillation, Asthma, Cancer, Diabetes Mellitus, Hyperlipidemia, Hypertension, Myocardial Infarction ([place]), Osteoarthritis ([place]) Additional Past Medical History / Comment(s): hx. skin cancer Last Myocardial Infarction Date:: 2002 History of Any Multi-Drug Resistant Organisms: None Reported Past Surgical History: Coronary Bypass/CABG, Heart Catheterization With Stent, Orthopedic Surgery, Tonsillectomy Additional Past Surgical History / Comment(s): foot surg., cardioversion, triple bypass Past Anesthesia/Blood Transfusion Reactions: No Reported Reaction Date of Last Stent Placement:: unknown Past Psychological History: No Psychological Hx Reported Past Alcohol Use History: Occasional Past Drug Use History: None Reported - Past Family History Brother(s) Family Medical History: Deep Vein Thrombosis (DVT) General Exam - General Exam Comments Initial Comments: General: Appears in no acute distress. HEAD: Normal with no signs of head trauma. EYES: PERRLA, EOMI, conjunctiva normal, no discharge. ENT: Hearing grossly intact, normal oropharynx. RESPIRATORY: Clear breath sounds bilaterally. No wheezes, rales, or rhonchi. C/V: Irregular rhythm/rate. S1 and S2 auscultated, no edema, peripheral pulses 2+ and intact throughout ABD: Abd is soft, nontender, nondistended EXT: Normal range of motion, no obvious deformity SKIN: No rashes or lesions observed on exposed skin. NEURO: Alert oriented x 4. No focal deficits. Limitations: no limitations Course Vital Signs 04/10/25 04/10/25 04/10/25 10:13 10:22 11:29 Temperature 97.9 F 97.1 F L Pulse Rate 82 46 L Pulse Rate [ 71 Agent Producer ] Respiratory 20 18 Rate Blood Pressure 74/45 107/76 O2 Sat by Pulse 98 100 Oximetry Medical Decision Making - Medical Decision Making Was pt. sent in by a medical professional or institution (, PA, CLIENT ACCOUNT ASSISTANT, urgent care, hospital, or care home...) When possible be specific @ -No Did you speak to anyone other than the patient for history (EMS, parent, family, police, friend...)? What history was obtained from this source @ -No Did you review nursing and triage notes (agree or disagree)? Why? @ -I reviewed and agree with nursing and triage notes Were old charts reviewed (outside hosp., previous admission, EMS record, old EKG, old radiological studies, urgent care reports/EKG's, care home records)? Report findings @ -Compared today's EKG with old EKGs from November 2024 which shows more bradycardia. Less obviously atrial fibrillation on today's EKG as it does appear to be more like heart block, more likely second-degree, as P waves are very obvious. Differential Diagnosis (chest pain, altered mental status, abdominal pain women, abdominal pain men, vaginal bleeding, weakness, fever, dyspnea, syncope, headache, dizziness, GI bleed, back pain, seizure, CVA, palpatations, mental health, musculoskeletal)? @ -Differential Weakness: Hypoglycemia, shock, sepsis, hyponatremia, anemia, infection, [place], ETOH, adverse medicine reaction, overdose, stroke, this is not meant to be an all-inclusive list. EKG interpreted by me (3pts min.). @ -As above X-rays interpreted by me (1pt min.). @ -Chest x-ray reveals no obvious acute cardiopulmonary process. CT interpreted by me (1pt min.). @ -None done U/S interpreted by me (1pt. min.). @ -None done What testing was considered but not performed or refused? (CT, X-rays, U/S, labs)? Why? @ -None What meds were considered but not given or refused? Why? @ -None Did you discuss the management of the patient with other professionals (professionals i.e. DrShanthi, PA, CLIENT ACCOUNT ASSISTANT, lab, RT, psych nurse, psych social worker, light out examiner, teacher, alumni relations officer, ed case manager)? Give summary @ -Discussed with Dr. Narayanan who agreed to evaluate the patient in the ER was in agreement with plan for workup. Discussed with Jesica the MLP who was in agreement with plan for admission. Patient will likely receive a pacemaker. Made NPO. Discussed the case with the admitting provider, [facility] Dr. Roger who accepted the admission. Was smoking cessation discussed for >3mins.? @ -No Was critical care preformed (if so, how long)? @ -Yes, 31 minutes Were there social determinants of health that impacted care today? How? (Homelessness, low income, unemployed, alcoholism, drug addiction, transportation, low edu. Level, literacy, decrease access to med. care, assisted, rehab)? @ -No Was there de-escalation of care discussed even if they declined (Discuss DNR or withdrawal of care, Hospice)? DNR status @ -No What co-morbidities impacted this encounter? (DM, HTN, Smoking, COPD, CAD, Cancer, CVA, ARF, Chemo, Hep., AIDS, mental health diagnosis, sleep apnea, morbid obesity)? @ -Recent Watchman device placement Was patient admitted / discharged? Hospital course, mention meds given and route, prescriptions, significant lab abnormalities, going to OR and other pertinent info. @ -Based on patient's presentation and physical exam, presents complaining of weakness after Watchman device placement. Bradycardic at home. Here, patient initially hypotensive in triage however immediately upon placement and the traum a bay, blood pressures are within acceptable limits with systolics anywhere from 105-120. Heart rates are varying from 40-60 on average. EKG shows findings concerning for possible arrhythmia versus heart block versus slow atrial fibrillation. I did contact cardiology who agreed to evaluate the patient at bedside and was in agreement plan for admission. Patient is given an aspirin. She was placed on IV fluids. The remainder of the patient's workup including chest x-ray returned and was remarkable for chronic anemia, mild hypomagnesemia which was replenished, slight lactic acidosis of 2.7, as well as an elevated troponin which does fit considering her recent procedure. BNP slightly elevated to 5000. Also likely related to recent procedure. EKG as above. Chest x-ray unremarkable for any obvious acute process. Discussed with Dr. Narayanan who agreed to evaluate the patient in the ER was in agreement with plan for workup. Discussed with Jesica the ML who was in agreement with plan for admission. Patient will likely receive a pacemaker. Made NPO. Discussed the case with the admitting provider, [facility] Dr. Roger who accepted the admission. Undiagnosed new problem with uncertain prognosis? @ -No Drug Therapy requiring intensive monitoring for toxicity (Heparin, Nitro, Insulin, Cardizem)? @ -No Were any procedures done? @ -No Diagnosis/symptom? @ -Weakness, arrhythmia with suspicion for heart block, bradycardia Acute, or Chronic, or Acute on Chronic? @ -Acute Uncomplicated (without systemic symptoms) or Complicated (systemic symptoms)? @ -Complicated Side effects of treatment? @ -No Exacerbation, Progression, or Severe Exacerbation? @ -No Poses a threat to life or bodily function? How? (Chest pain, [place], [place], pneumonia, PE, COPD, DKA, ARF, appy, cholecystitis, CVA, Diverticulitis, Homicidal, Suicidal, threat to staff... and all critical care pts) @ -Yes - Lab Data Result diagrams: 04/10/25 10:37 04/10/25 10:37 Lab Results 04/10/25 04/10/25 04/10/25 Range/Units 10:37 10:37 10:37 WBC 7.48 (4.50-10.00) 10*3/uL RBC 2.67 L (4.10-5.20) 10*6/uL Hgb 9.2 L (12.0-15.0) g/dL Hct 27.6 L (37.2-46.3) % MCV 103.4 H (80.0-97.0) fL MCH 34.5 H (27.0-32.0) pg MCHC 33.3 (32.0-37.0) g/dL Plt Count 223 (140-440) 10*3/uL MPV 10.9 (9.5-12.2) fL Immature Gran % (Auto) 0.3 % Neutrophils % 65.2 % Lymphocytes % 26.2 % Monocytes % 7.8 % Eosinophils % 0.1 % Basophils % 0.4 % Immature Gran # 0.02 (0.00-0.04) 10*3/uL Neutrophils # 4.88 (1.80-7.70) 10*3/uL Lymphocytes # 1.96 (0.90-5.00) 10*3/uL Monocytes # 0.58 (0.20-1.00) 10*3/uL Eosinophils # 0.01 L (0.04-0.35) 10*3/uL Basophils # 0.03 (0.00-0.10) 10*3/uL PT 12.5 (10.0-12.5) sec INR 1.2 H (<1.2) APTT 25.1 (22.0-30.0) sec Sodium 136 L (137-145) mmol/L Potassium 4.6 (3.5-5.1) mmol/L Chloride 103 (98-107) mmol/L Carbon Dioxide 18 L (22-30) mmol/L Anion Gap 15 mmol/L BUN 31 H (7-17) mg/dL Creatinine 1.55 H (0.52-1.04) mg/dL Est GFR (CKD-EPI)AfAm 37 (>60 ml/min/1.73 sqM) Est GFR (CKD-EPI)NonAf 32 (>60 ml/min/1.73 sqM) Glucose 87 (74-99) mg/dL Lactic Ac Sepsis Rflx Plasma Lactic Acid Armani (0.7-2.0) mmol/L Calcium 9.4 (8.4-10.2) mg/dL Magnesium 1.3 L (1.6-2.3) mg/dL Total Bilirubin 0.7 (0.2-1.3) mg/dL AST 22 (14-36) U/L ALT 12 (4-34) U/L Alkaline Phosphatase 39 (38-126) U/L Troponin I (0.000-0.034) ng/mL NT-Pro-B Natriuret Pep 5440 pg/mL Total Protein 6.8 (6.3-8.2) g/dL Albumin 3.9 (3.5-5.0) g/dL TSH 1.280 (0.465-4.680) mIU/L Influenza Type A (PCR) (Not Detectd) Influenza Type B (PCR) (Not Detectd) RSV (PCR) (Not Detectd) SARS-CoV-2 (PCR) (Not Detectd) 04/10/25 04/10/25 04/10/25 Range/Units 10:37 10:37 12:14 WBC (4.50-10.00) 10*3/uL RBC (4.10-5.20) 10*6/uL Hgb (12.0-15.0) g/dL Hct (37.2-46.3) % MCV (80.0-97.0) fL MCH (27.0-32.0) pg MCHC (32.0-37.0) g/dL Plt Count (140-440) 10*3/uL MPV (9.5-12.2) fL Immature Gran % (Auto) % Neutrophils % % Lymphocytes % % Monocytes % % Eosinophils % % Basophils % % Immature Gran # (0.00-0.04) 10*3/uL Neutrophils # (1.80-7.70) 10*3/uL Lymphocytes # (0.90-5.00) 10*3/uL Monocytes # (0.20-1.00) 10*3/uL Eosinophils # (0.04-0.35) 10*3/uL Basophils # (0.00-0.10) 10*3/uL PT (10.0-12.5) sec INR (<1.2) APTT (22.0-30.0) sec Sodium (137-145) mmol/L Potassium (3.5-5.1) mmol/L Chloride (98-107) mmol/L Carbon Dioxide (22-30) mmol/L Anion Gap mmol/L BUN (7-17) mg/dL Creatinine (0.52-1.04) mg/dL Est GFR (CKD-EPI)AfAm (>60 ml/min/1.73 sqM) Est GFR (CKD-EPI)NonAf (>60 ml/min/1.73 sqM) Glucose (74-99) mg/dL Lactic Ac Sepsis Rflx Y Plasma Lactic Acid Armani 2.7 H* (0.7-2.0) mmol/L Calcium (8.4-10.2) mg/dL Magnesium (1.6-2.3) mg/dL Total Bilirubin (0.2-1.3) mg/dL AST (14-36) U/L ALT (4-34) U/L Alkaline Phosphatase (38-126) U/L Troponin I 0.264 H* (0.000-0.034) ng/mL NT-Pro-B Natriuret Pep pg/mL Total Protein (6.3-8.2) g/dL Albumin (3.5-5.0) g/dL TSH (0.465-4.680) mIU/L Influenza Type A (PCR) (Not Detectd) Influenza Type B (PCR) (Not Detectd) RSV (PCR) (Not Detectd) SARS-CoV-2 (PCR) (Not Detectd) 04/10/25 Range/Units 13:22 WBC (4.50-10.00) 10*3/uL RBC (4.10-5.20) 10*6/uL Hgb (12.0-15.0) g/dL Hct (37.2-46.3) % MCV (80.0-97.0) fL MCH (27.0-32.0) pg MCHC (32.0-37.0) g/dL Plt Count (140-440) 10*3/uL MPV (9.5-12.2) fL Immature Gran % (Auto) % Neutrophils % % Lymphocytes % % Monocytes % % Eosinophils % % Basophils % % Immature Gran # (0.00-0.04) 10*3/uL Neutrophils # (1.80-7.70) 10*3/uL Lymphocytes # (0.90-5.00) 10*3/uL Monocytes # (0.20-1.00) 10*3/uL Eosinophils # (0.04-0.35) 10*3/uL Basophils # (0.00-0.10) 10*3/uL PT (10.0-12.5) sec INR (<1.2) APTT (22.0-30.0) sec Sodium (137-145) mmol/L Potassium (3.5-5.1) mmol/L Chloride (98-107) mmol/L Carbon Dioxide (22-30) mmol/L Anion Gap mmol/L BUN (7-17) mg/dL Creatinine (0.52-1.04) mg/dL Est GFR (CKD-EPI)AfAm (>60 ml/min/1.73 sqM) Est GFR (CKD-EPI)NonAf (>60 ml/min/1.73 sqM) Glucose (74-99) mg/dL Lactic Ac Sepsis Rflx Plasma Lactic Acid Armani (0.7-2.0) mmol/L Calcium (8.4-10.2) mg/dL Magnesium (1.6-2.3) mg/dL Total Bilirubin (0.2-1.3) mg/dL AST (14-36) U/L ALT (4-34) U/L Alkaline Phosphatase (38-126) U/L Troponin I (0.000-0.034) ng/mL NT-Pro-B Natriuret Pep pg/mL Total Protein (6.3-8.2) g/dL Albumin (3.5-5.0) g/dL TSH (0.465-4.680) mIU/L Influenza Type A (PCR) Not Detected (Not Detectd) Influenza Type B (PCR) Not Detected (Not Detectd) RSV (PCR) Not Detected (Not Detectd) SARS-CoV-2 (PCR) Not Detected (Not Detectd) - EKG Data -: EKG Interpreted by Me EKG Comments: 12-lead Electrocardiogram Interpretation Note EKG was reviewed and interpreted by myself. 12-lead ECG performed at 1031 is interpreted by me as revealing sinus rhythm with heart block and PVC. Machine interpreted as atrial fibrillation. At a rate of 58 beats per minute. [place] is normal. QRS duration is 150 ms, QTc is 456 ms.. There were no ST or T wave abnormalities to suggest myocardial ischemia or injury. R wave progression across the precordium was satisfactory. By my interpretation this EKG is non- diagnostic for acute ischemia. Findings concerning for possible heart block. Difficult to decipher second-degree Wenke Bach versus possible third-degree versus slow atrial fibrillation. Disposition Clinical Impression: Weakness, Arrhythmia, Bradycardia Disposition: ADMITTED IP TO THIS HOSP Condition: Stable Time of Disposition: 12:45
--- NOTE | 2025-04-10 13:17 | P.CRDCN ---
History of Present Illness History of present illness: HISTORY OF PRESENT ILLNESS: This is a 75-year-old female with a past medical history significant for atrial fibrillation, coronary artery disease with previous CABG, hypertension, hyperli pidemia, diabetes and syncope. Patient follows in the office with Dr. Hart. We have been asked to see the patient in consultation for possible heart block post watchman. Patient examined at the bedside in the emergency room. Patient underwent Watchman device yesterday at [facility]. She was found to be bradycardic afterwards with episodes of second-degree heart block with 2-1 conduction and pauses. 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 This morning she states that she has just felt very weak. She reports feeling dizzy and lightheaded but did not have any episodes of sync ope. She also reports that her head feels funny. She denies any chest pain or shortness of breath. Patient is bradycardic at the time of examination with a heart rate between 3050 on telemetry that appears to be atrial fibrillation. Additionally she was found to be hypotensive by EMS with a blood pressure in the 70s. However patient has been normotensive since admission. DIAGNOSTICS: - EKG reveals second-degree heart block with 2-1 conduction versus atrial fibrillation with slow ventricular rate. Bedside telemetry appears to be afib with slow ventricular rate. - Chest xray negative for acute process. Cardiomegaly. - Laboratory data: WBC 7.48. Hemoglobin 9.2. Platelet count 223. Sodium 136. Potassium 4.6. BUN 31. Creatinine 1.55. Lactic acid 2.7. Troponin 0.264. proBNP 5540. TSH 1.280. - Current home cardiac medications include aspirin 81 mg daily, Plavix 75 mg daily, lisinopril 40 mg daily, amlodipine 5 mg daily, rosuvastatin 10 mg daily. - Most recent echocardiogram obtained in September 2024 revealed ejection fraction 52%, severe TR, mild AR, moderate MR, mild , RVSP 52 mmHg - Cardiac catheterization history: November 2018 revealing chronically occluded proximal left main, critical stenosis in the mid RCA, patent VERA to LAD, patent SVG to ramus intermedius, patent SVG to right coronary artery. Normal left ventricular size and systolic function. Medical management was recommended REVIEW OF SYSTEMS: At the time of my exam: CONSTITUTIONAL: Denies fever or chills. HEENT: Denies blurred vision, vision changes, or eye pain. Denies hemoptysis CARDIOVASCULAR: Denies chest pain. Denies orthopnea. Denies PND. Denies palpitations RESPIRATORY: Denies shortness of breath. GASTROINTESTINAL: Denies abdominal pain. Denies nausea or vomiting. HEMATOLOGIC: Denies bleeding disorders. GENITOURINARY: Denies any blood in urine. SKIN: Denies pruitis. Denies rash. PHYSICAL EXAM: VITAL SIGNS: Reviewed. GENERAL: Well-developed in no acute distress. HEENT: Head is normocephalic. Pupils are equal, round. Sclerae anicteric. Mucous membranes of the mouth are moist. Neck supple. No JVD or thyromegaly LUNGS: Respirations even and unlabored. Lungs essentially clear to auscultation bilaterally. HEART: Bradycardic. Irregular rate and rhythm. S1 and S2 heard. ABDOMEN: Soft. Nondistended. Nontender. EXTREMITIES: Normal range of motion. No clubbing or cyanosis. Peripheral pulses intact. No lower extremity edema NEUROLOGIC: Awake and alert. Oriented x 3. ASSESSMENT: Generalized weakness with dizziness and lightheadedness Permanent atrial fibrillation with slow ventricular rate, heart rate 30s50s, not on any AV michel blocking agents outpatient Status post Watchman device, 04/09/2025 Episodes of second-degree heart block with 2-1 conduction and pauses, yesterday at [facility] Elevated troponin of unclear clinical significance, no evidence of acute coronary syndrome Coronary artery disease with previous CABG Hypertension Hyperlipidemia History of diabetes History of syncope PLAN: Obtain 2D echo to assess LV function and r/o pericardial effusion Avoid any AV michel blocking agents Continue dual antiplatelet therapy with aspirin and Plavix Patient was apparently hypotensive en route to the hospital with a systolic blood pressure in the 70s. However she is normotensive at this time. We will hold antihypertensive medications for now and reassess tomorrow N.p.o. Patient to undergo pacemaker implantation this evening with Dr. Grande Further recommendations pending patient course Nurse practitioner note has been reviewed by physician. Signing provider agrees with the documented findings, assessment, and plan of care documented by RN POSTPARTUM as a scribe. Past Medical History Past Medical History: Atrial Fibrillation, Asthma, Cancer, Diabetes Mellitus, Hyperlipidemia, Hypertension, Myocardial Infarction ([place]), Osteoarthritis ([place]) Additional Past Medical History / Comment(s): hx. skin cancer Last Myocardial Infarction Date:: 2002 History of Any Multi-Drug Resistant Organisms: None Reported Past Surgical History: Coronary Bypass/CABG, Heart Catheterization With Stent, Orthopedic Surgery, Tonsillectomy Additional Past Surgical History / Comment(s): foot surg., cardioversion, triple bypass Past Anesthesia/Blood Transfusion Reactions: No Reported Reaction Date of Last Stent Placement:: unknown Past Psychological History: No Psychological Hx Reported Past Alcohol Use History: Occasional Past Drug Use History: None Reported - Past Family History Brother(s) Family Medical History: Deep Vein Thrombosis (DVT) Medications and Allergies Home Medications Medication Instructions Recorded Confirmed Type metFORMIN HCL [Glucophage] 1,000 mg PO BID 07/31/15 04/10/25 History Pioglitazone [Actos] 30 mg PO DAILY 12/06/24 04/10/25 History Rosuvastatin [Crestor] 10 mg PO DAILY 12/06/24 04/10/25 History amLODIPine [Norvasc] 5 mg PO DAILY 12/06/24 04/10/25 History glipiZIDE [Glucotrol] 5 mg PO BID 12/06/24 04/10/25 History lisinopriL [Zestril] 40 mg PO DAILY 12/06/24 04/10/25 History Aspirin [Adult Low Dose Aspirin EC] 81 mg PO HS 12/07/24 04/10/25 History Magnesium Oxide [Mag-Ox] 400 mg PO DAILY 04/10/25 04/10/25 History Mv-Mn/Folic Acid/K1/Herb 357 1 tab PO MOTH 04/10/25 04/10/25 History [Alive Women's 50 Plus Ultra Tb] Allergies Allergy/AdvReac Type Severity Reaction Status Date / Time Penicillins Allergy Dyspnea Verified 04/10/25 11:51 Physical Exam Vitals: Vital Signs Temp Pulse Pulse Resp BP Pulse Ox 04/10/25 11:29 97.1 F L 46 L 18 107/76 100 04/10/25 10:22 71 04/10/25 10:13 97.9 F 82 20 74/45 98 Intake and Output 04/09/25 04/10/25 04/10/25 22:59 06:59 14:59 Other: Weight 82.554 kg Results 04/10/25 10:37 04/10/25 10:37 Cardiac Enzymes 04/10/25 04/10/25 Range/Units 10:37 10:37 AST 22 (14-36) U/L Troponin I 0.264 H* (0.000-0.034) ng/mL Coagulation 04/10/25 Range/Units 10:37 PT 12.5 (10.0-12.5) sec APTT 25.1 (22.0-30.0) sec CBC 04/10/25 Range/Units 10:37 WBC 7.48 (4.50-10.00) 10*3/uL RBC 2.67 L (4.10-5.20) 10*6/uL Hgb 9.2 L (12.0-15.0) g/dL Hct 27.6 L (37.2-46.3) % Plt Count 223 (140-440) 10*3/uL Comprehensive Metabolic Panel 04/10/25 Range/Units 10:37 Sodium 136 L (137-145) mmol/L Potassium 4.6 (3.5-5.1) mmol/L Chloride 103 (98-107) mmol/L Carbon Dioxide 18 L (22-30) mmol/L BUN 31 H (7-17) mg/dL Creatinine 1.55 H (0.52-1.04) mg/dL Glucose 87 (74-99) mg/dL Calcium 9.4 (8.4-10.2) mg/dL AST 22 (14-36) U/L ALT 12 (4-34) U/L Alkaline Phosphatase 39 (38-126) U/L Total Protein 6.8 (6.3-8.2) g/dL Albumin 3.9 (3.5-5.0) g/dL Current Medications Generic Name Dose Route Start Last Admin Trade Name Freq PRN Reason Stop Dose Admin Magnesium Sulfate/Dextrose 1 100 mls @ 100 mls/hr 04/10/25 12:52 gm/ IV Solution IVPB 04/10/25 13:51 ONCE ONE Sodium Chloride 1,000 mls @ 100 mls/hr 04/10/25 12:52 Saline 0.9% IV 04/10/25 22:51 .Q10H STA Naloxone HCl 0.2 mg 04/10/25 12:52 Naloxone 0.4 Mg/Ml 1 Ml Vial IV Q2M PRN Opioid Reversal Ondansetron HCl 4 mg 04/10/25 12:52 Ondansetron 4 Mg/2 Ml Vial IVP Q8HR PRN Nausea And Vomiting Intake and Output 04/09/25 04/10/25 04/10/25 22:59 06:59 14:59 Other: Weight 82.554 kg Patient Weight 04/11/25 06:59 Weight 82.554 kg 04/10/25 10:37 04/10/25 10:37
[2025-04-10] MEDS ORDERED: DEXTROSE 50% SYRINGE 50 ML IVP PRN ×2 (13:22)
[2025-04-10] MEDS: SODIUM CHLORIDE 0.9% 1,000 ML IV SCH ×2 (14:01→14:02)
[2025-04-10] MEDS: SODIUM CHLORIDE 0.9% 1,000 ML IV STA (14:01)
[2025-04-10] MEDS: MAGNESIUM SULFATE-D5W PMX 1 GM in DEXTROSE/WATER 1 100ML.BAG IVPB ONE (14:27)
[2025-04-10] MEDS: ASPIRIN 81 MG PO STA (14:29)
[2025-04-10 16:05] LABS: Influenza A Not Detected (Not Detectd); Influenza B Not Detected (Not Detectd); RSV Not Detected (Not Detectd)
[2025-04-10] MEDS: IV FLUID CONTINUATION 1,000 ML IV ONE (16:30)
[2025-04-10] MEDS ORDERED: fentaNYL (PF) 50 MCG/ML 2 ML AMP ONE (16:30)
[2025-04-10] MEDS ORDERED: diphenhydrAMINE 50 MG/ML 1 ML VIAL ONE (16:30)
[2025-04-10] MEDS ORDERED: MIDAZOLAM 2 MG/2 ML VIAL ONE (16:30)
[2025-04-10] MEDS: IOPAMIDOL-370 100ML BTL INJ ONE ×2 (16:47)
[2025-04-10] MEDS: VANCOMYCIN 1,000 MG in SODIUM CHLORIDE 0.9% 250 ML IVPB STA (16:59)
[2025-04-10] MEDS: HEPARIN SODIUM,PORCINE (1 ML) 2,500 UNIT in SODIUM CHLORIDE 0.9% 250 ML IRRIGATION ONE (17:00)
[2025-04-10] MEDS: LIDOCAINE 1% INJ 10MG/ML (20 ML MDV) SQ ONE (17:19)
[2025-04-10] MEDS: ROPIVACAINE 5 MG/ML 30 ML VIAL MISCELLANE ONE (17:21)
[2025-04-10] MEDS: CLINDAMYCIN 600 MG in SODIUM CHLORIDE 0.9% 250 ML IRRIGATION PRN (18:03)
[2025-04-10] MEDS: INSULIN LISPRO (HumaLOG) 100 UNIT/ML 10 mL VL SQ SCH (18:46)
[2025-04-10] MEDS ORDERED: CLINDAMYCIN 900 MG in DEXTROSE 5% IN WATER 50 ML IVPB PRN (19:00)
--- NOTE | 2025-04-10 19:04 | P.EPPROC ---
- EP Procedure Note Electrophysiology Procedure Note: Diagnosis Symptomatic bradycardia, unprovoked, no triggering factors, tachybradycardia syndrome underlying atrial tachycardia with bradycardia, very symptomatic with tiredness fatigue and shortness of breath Not on any beta-blockers Procedure Dual-chamber pacemaker implantation with conduction system pacing (left bundle pacing) Left upper extremity venogram Details Patient was brought to the EP lab in a fasting state. Written informed consent was obtained prior to the procedure. Conscious sedation provided by METAL TURNER. IV antibiotics administered. Local anesthesia administered. A 4 cm incision made in the pectoral area. Subfascial pocket made. Venous accesses obtained Venous sheaths placed. Leads placed in the right heart. 2 sets of pacing cables were used; one for backup temporary pacing and the other for assessment of current of injury and signal analysis. A 52 cm atrial pacing lead was first positioned in the RV apex for temporary pacing during mapping and conduction system pacing Thresholds were interrogated and backup high output pacing was provided This atrial lead was then removed from the right ventricle and later positioned in the right atrial appendage and the permanent lead A deflected sheath was prepped. A coronary sinus decapolar catheter was placed within this sheath. The catheter along with the sheath was then passed into the right heart, the catheter was prolapsed across the tricuspid valve, into the right ventricle and then further into the right ventricular outflow tract across the pulmonic valve into the pulmonary artery. This sheath was slid over this decapolar catheter into the RVOT. Thereafter the catheter last sheath assembly was withdrawn from the RVOT along the septum to the mid septal area. The sheath was appropriately to to map the right ventricular aspect of the septum. The decapolar catheter was withdrawn, the sheath flushed again and the screw-in pacing lead placed within the sheath. Further detailed unipolar pace-mapping of the septum was performed and once the appropriate based morphology was obtained on lead V1, the lead was screwed into the septum. The lead was screwed in 4-5 returns at a time while monitoring the current of injury, the pacing impedance changes and the paced QRS morphology. The stimulus to peak of V6 QRS was measured at each step. Once a QR or rSR pattern of paced QRS in lead V1 was obtained, a left bundle signal was sought. Impedance was measured and thresholds were measured. An impedance drop of 100-200 ohms but above 550 ohms was targeted along with an unchanged vector of the current of injury signal. The final positioning was based on the QRS morphology in lead V1 and a short stimulus to peak of the V6 QRS of less than 90 ms. The sheath was withdrawn, stability of the pacing lead deep in the septum was confirmed on HARRIS and AZERI views and the sheath was slipped and an adequate heel was provided for the lead. Unipolar and bipolar electrogram morphology obtained Atrial lead positioned in the right atrial appendage. Sensing, thresholds and impedances measured following positioning and securing the lead in the right atrial appendage Left bundle lead parameters: Model #30 at 30, 69 cm in length, Medtronic lead QR pattern, stimulus-V6 93 ms, QRS width, paced equals 157 ms Pacing threshold 0.5 V at 0.4 ms, R waves 12.6 mV and pacing impedance 646 ohms Atrial lead parameters: Patient in atrial tachycardia, atrial signals 2.4 mV, pacing impedance 551 ohms Medtronic 52 cm model #5076-lead Device lead slot technician: Medtronic [place] XT DR MRI Dual-chamber pacemaker device connected to the leads and placed in the subfascial pocket Patient tolerated the procedure well without acute complications Pacemaker programming: At this time she has been programmed to VVIR 60-120 bpm This was a long procedure Mapping of the left bundle took a longer time than usual. However at the final attempt excellent lead position, stable and with excellent parameters noted Making the subfascial pocket on account of the subcutaneous tissue and fat took a longer time
--- NOTE | 2025-04-10 19:05 | P.EPPROC ---
- EP Procedure Note Electrophysiology Procedure Note: Dear Manas Crouch was admitted with bradycardia with underlying atrial tachycardia. Previously she has had atrial fibrillation with normal to elevated rates but this time she has been feeling very tired and fatigued even before the watchman was implanted When she came in her heart rate was about 50 beats a minute but she was extremely exhausted Biventricular pacemaker with left bundle pacing/conduction system pacing was implanted An atrial lead was also implanted and in the future we may consider therapies for her atrial tachycardia. For now she should simply continue the regimen post watchman Thank you for entrusting me with the care of the patient Warm regards Sincerely Semaj Grande
[2025-04-10 20:10] LABS: Glucose,Whole Blood 87 mg/dL (70-110)
[2025-04-10] MEDS: ACETAMINOPHEN IV (For NPO) 1,000 MG in EMPTY BAG 1 BAG IVPB ONE (21:15)
[2025-04-10] MEDS: ASPIRIN 81 MG PO SCH (21:16)
[2025-04-10] MEDS: glipiZIDE 5 MG TAB PO SCH (21:16)
--- NOTE | 2025-04-10 23:45 | HP ---
HISTORY AND PHYSICAL CHIEF COMPLAINT: Weakness and cardiac arrhythmia. HISTORY OF PRESENT ILLNESS: This 75-year-old woman with a past medical history of multiple medical issues include paroxysmal atrial fibrillation, diabetes mellitus, type 2, CAD, CABG, underwent Watchman device implantation at [facility] yesterday. The patient complained of weakness. The patient has multiple cardiac arrhythmias including bradycardia as well as atrial flutter with 3:1 AV varying block also. The troponins are slightly elevated. There is no history of fever, rigors, chills at this time. The patient's creatinine is also elevated at 1.55. There is no history of fever, rigors, chills. The patient also had hypotension before the presentation as documented by the . PAST MEDICAL HISTORY: Atrial fibrillation paroxysmal, diabetes type 2, hypertension, hyperlipidemia. Rest of the history and chart is also reviewed. HOME MEDICATIONS: Reviewed include aspirin. Dose and rest of medications reviewed. ALLERGIES: Penicillin. FAMILY HISTORY: History of DVT in the family. SOCIAL HISTORY: Occasional alcohol. REVIEW OF SYSTEMS: Fourteen-point review of systems is negative except as mentioned earlier. PHYSICAL EXAMINATION: VITAL SIGNS: Pulse is 46, blood pressure 107/76, respirations 18, temperature 97.1. HEENT: Conjunctivae normal. NECK: No jugular venous distention. CARDIOVASCULAR: S1, S2 muffled. RESPIRATIONS: Few scattered rhonchi. ABDOMEN: Soft. NEURO: No stroke. LABORATORY DATA: Hemoglobin 9.2. Labs are noted. Chest x-ray, which I personally noted include no acute process and cardiomegaly. ASSESSMENT: 1. Bradycardia, hypotension for evaluation. 2. Possible atrial flutter with varying block 3:1 block. 3. History of recent Watchman device implantation. 4. History of paroxysmal atrial fibrillation. 5. [id number]-vvjqpim renal failure. 6. Troponin elevated up to 0.26 for possibly secondary to the recent procedure, rule out acute myocardial infarction. 7. Hyponatremia. 8. Macrocytic anemia. 9. History of asthma. 10.Diabetes mellitus, type 2. 11.Hypertension. 12.Hyperlipidemia. 13.Multiple complex medical issues history of coronary artery disease, CABG and stent. RECOMMENDATION: This 75-year-old woman presented with multiple complex medical issues, we will monitor the patient closely. Recommend Cardiology consultation. I would recommend telemetry, IV fluids. Monitor blood pressure closely. Avoid beta blockers. Resume the home medications once they are confirmed. Monitor creatinine closely. Prognosis is guarded because of multiple complex medical issues. Further recommendations to follow. See orders for details. I would also recommend viral titers also. MMBONL / IJN: [id number] /
[2025-04-11 00:25] VITALS: RESP 16
[2025-04-11] MEDS: ceFAZolin 2 GM in DEXTROSE 5% IN WATER 50 ML IVPB SCH (03:37)
[2025-04-11 06:11] LABS: Glucose,Whole Blood 82 mg/dL (70-110)
--- NOTE | 2025-04-11 07:37 | XR ---
EXAMINATION TYPE: XR chest 2V DATE OF EXAM: 04/11/2025 6:45 AM COMPARISON: Chest radiographs from 04/10/2025 CLINICAL INDICATION: Female, 75 years old with history of Lead placement check; [facility] TECHNIQUE: XR chest 2V Frontal and lateral views of the chest. FINDINGS: Lungs/Pleura: No evidence of focal consolidation or pneumothorax. Blunting of the costophrenic angles is present. Pulmonary vascularity: Unremarkable. Heart/mediastinum: Cardiomediastinal silhouette is enlarged. Atherosclerotic calcifications are seen in the aorta. Watch man device not well appreciated on this exam. Cardiac conduction leads terminati ng over the right atrium and right ventricle. Musculoskeletal: No acute osseous pathology. Midline sternotomy wires are noted. Other findings: None IMPRESSION: 1. No acute cardiopulmonary disease/process. 2. Cardiomegaly. 3. Trace bilateral pleural effusion [facility] Dago Murray, , 04/11/2025 7:35 AM
[2025-04-11 07:53] LABS: HCT 24.2 % (37.2-46.3); HGB 7.8 g/dL (12.0-15.0); Immature Platelet Fraction 4.3 % (1.1-6.1); MCH 33.9 pg (27.0-32.0); MCHC 32.2 g/dL (32.0-37.0); MCV 105.2 fL (80.0-97.0); Mean Platelet Volume 11.1 fL (9.5-12.2); RDW 15.8 % (11.5-14.5); WBC 4.88 10*3/uL (4.50-10.00)
[2025-04-11 08:11] LABS: ALT 7 U/L (4-34); AST 19 U/L (14-36); African American GFR (CKD) 37 (>60 ml/min/1.73 sqM); Albumin 3.5 g/dL (3.5-5.0); Alkaline Phosphatase 44 U/L (38-126); Anion Gap 13 mmol/L; Blood Urea Nitrogen 28 mg/dL (7-17); Calcium 9.1 mg/dL (8.4-10.2); Carbon Dioxide 18 mmol/L (22-30); Chloride 107 mmol/L (98-107); Glucose 66 mg/dL (74-99); Non-African American GFR(CKD) 32 (>60 ml/min/1.73 sqM); Sodium 138 mmol/L (137-145); Total Bilirubin 0.6 mg/dL (0.2-1.3); Total Protein 6.2 g/dL (6.3-8.2)
[2025-04-11 08:20] VITALS: BP 109/62; PULSE 80; TEMP 98.1
[2025-04-11] MEDS: ACETAMINOPHEN TAB 325 MG TAB PO PRN (08:21)
[2025-04-11] MEDS: MAGNESIUM OXIDE 400 MG TAB PO SCH (08:21)
[2025-04-11] MEDS: CLOPIDOGREL 75 MG TAB PO SCH (08:21)
[2025-04-11] MEDS: ATORVASTATIN 20 MG TAB PO SCH (08:21)
[2025-04-11] MEDS: PIOGLITAZONE 30 MG TAB PO SCH (08:21)
--- NOTE | 2025-04-11 08:29 | CA ---
Transthoracic Echo Report Name: Willa Smallwood Age: 75 Gender: F : 1950 Exam Date: 04/10/2025 13:24 Exam Location: [place] [facility] Ht (in): 63 Wt (lb): 183 Ordering Physician: Jesica Andrew Attending/Referring Phys: [id number], Kamran Ski Patroller Kimberly Cruz RDCS Procedure CPT: Indications: LV function, status post watchman, rule out effusi Cardiac Hx: Technical Quality: Fair Contrast 1: Total Dose (mL): Contrast 2: Total Dose (mL): MEASUREMENTS (Male / Female) Normal Values 2D ECHO LV Diastolic Diameter PLAX 4.4 cm 4.2 - 5.9 / 3.9 - 5.3 cm LV Systolic Diameter PLAX 2.9 cm IVS Diastolic Thickness 1.2 cm 0.6 - 1.0 / 0.6 - 0.9 cm LVPW Diastolic Thickness 1.0 cm 0.6 - 1.0 / 0.6 - 0.9 cm LV Relative Wall Thickness 0.5 RV Internal Dim ED PLAX 3.2 cm LA Systolic Diameter LX 5.2 cm 3.0 - 4.0 / 2.7 - 3.8 cm LV Diastolic Volume MOD BP 65.2 cm??? 67 - 155 / 56 - 104 cm??? LV Systolic Volume MOD BP 28.1 cm??? 22 - 58 / 19 - 49 cm??? LV Ejection Fraction MOD BP 57.0 % >= 55 % LV Cardiac Index MOD BP 1027.3 cm???/min???m??? LV Diastolic Volume MOD 4C 78.7 cm??? LV Systolic Volume MOD 4C 37.5 cm??? LV Ejection Fraction MOD 4C 52.4 % LV Cardiac Index MOD 4C 1140.1 cm???/min???m??? LV Diastolic Length 4C 7.0 cm LV Systolic Length 4C 6.1 cm LV Diastolic Volume MOD 2C 52.9 cm??? LV Systolic Volume MOD 2C 19.7 cm??? LV Ejection Fraction MOD 2C 62.8 % LV Cardiac Index MOD 2C 917.2 cm???/min???m??? LV Diastolic Length 2C 6.9 cm LV Systolic Length 2C 5.6 cm LA Volume 95.5 cm??? 18 - 58 / 22 - 52 cm??? LA Volume Index 48.9 cm???/m??? 16 - 28 cm???/m??? M-MODE Aortic Root Diameter MM 3.1 cm LA Systolic Diameter MM 4.9 cm LA Ao Ratio MM 1.6 AV Cusp Separation MM 1.7 cm DOPPLER AV Peak Velocity 201.6 cm/s AV Peak Gradient 16.3 mmHg AV Mean Velocity 144.7 cm/s AV Mean Gradient 9.1 mmHg AV Velocity Time Integral 50.1 cm AI Peak Velocity 257.1 cm/s AI Peak Gradient 26.4 mmHg AI Pressure Half Time 999.7 ms LVOT Peak Velocity 130.8 cm/s LVOT Peak Gradient 6.8 mmHg LVOT Velocity Time Integral 34.6 cm MV Area PHT 2.2 cm??? Mitral E Point Velocity 119.8 cm/s Mitral A Point Velocity 1.0 cm/s Mitral E to A Ratio 122.7 MV Deceleration Time 343.2 ms TR Peak Velocity 279.1 cm/s TR Peak Gradient 31.2 mmHg FINDINGS Left Ventricle Left ventricular ejection fraction is estimated at 45 to 50% mid to distal anteroseptum appears to be hypokinetic along with some atypical septal motion. Mildly increased septal wall thickness. Mildly increased posterior wall thickness. . Reduced global left ventricular systolic function. Right Ventricle Severe right ventricular dilatation. Generalized right ventricular hypokinesis. Moderate pulmonary hypertension. Right Atrium Severe right atrial dilatation. Left Atrium Severely increased left atrial diameter. Severely increased left atrial volume. Mildly increased left atrial area. Mitral Valve Structurally normal mitral valve. [id number] mitral regurgitation. Aortic Valve Mild aortic stenosis with a peak gradient of 16 mmHg and a mean gradient of 9mmHg. Trileaflet aortic valve. Trace aortic regurgitation. Tricuspid Valve Annular dilatation of the tricuspid valve. Moderate tricuspid regurgitation. No tricuspid stenosis. Pulmonic Valve Structurally normal pulmonic valve. Trace pulmonic regurgitation. No pulmonic stenosis. Pericardium No pericardial or pleural effusion. Aorta Normal size aortic root and proximal ascending aorta. CONCLUSIONS Left ventricle has reduced ejection fraction of about 45 to 50% with atypical septal motion and some septal hypokinesia. Mild to moderate mitral and moderate tricuspid regurgitation with moderate pulmonary hypertension. Mild aortic regurgitation. Increased gradient across aortic valve without significant restriction Previewed by: Dr. Rafaela Perez MD (Electronically Signed) Final Date: 11 Apr 2025 08:28
[2025-04-11] MEDS ORDERED: ASPIRIN 81 MG PO SCH (09:00)
[2025-04-11 09:36] LABS: Anisocytosis (M) Present; Eosinophils # (M) 0.15 k/uL (0-0.7); Hypersegmented Neutrophils Present; Lymphocytes # (M) 1.81 k/uL (1.0-4.8); Monocytes # (M) 0.34 k/uL (0-1.0); Neutrophils # (M) 2.64 k/uL (1.3-7.7); Neutrophils % (M) 54 %; Nucleated Red Blood Cells 0 /100 WBC (0-0); Total Cells Counted 200
[2025-04-11 09:37] LABS: Platelet Count 115 10*3/uL (140-440)
[2025-04-11] MEDS: HYDROcodone/APAP 5-325MG 1 EACH TAB PO PRN (10:09)
--- NOTE | 2025-04-11 10:23 | P.PN ---
Subjective HISTORY OF PRESENT ILLNESS: This is a 75-year-old female with a past medical history significant for atrial fibrillation, coronary artery disease with previous CABG, hypertension, hyperlipidemia, diabetes and syncope. Patient follows in the office with Dr. Hart. We have been asked to see the patient in consultation for possible heart block post watchman. Patient examined at the bedside in the emergency room. Patient underwent Watchman device yesterday at [facility]. She was found to be bradycardic afterwards with episodes of second-degree heart block with 2-1 conduction and pauses. She initially was going to be kept overnight for observation but was deemed stable for discharge home and to follow-up with her primary service delivery manager. This morning she states that she has just felt very weak. She reports feeling dizzy and lightheaded but did not have any episodes of syncope. She also reports that her head feels funny. She denies any chest pain or shortness of breath. Patient is bradycardic at the time of examination with a heart rate between 3050 on telemetry that appears to be atrial fibrillation. Additionally she was found to be hypotensive by EMS with a blood pressure in the 70s. However patient has been normotensive since admission. DIAGNOSTICS: - EKG reveals second-degree heart block with 2-1 conduction versus atrial fibrillation with slow ventricular rate. Bedside telemetry appears to be afib with slow ventricular rate. - Chest xray negative for acute process. Cardiomegaly. - Laboratory data: WBC 7.48. Hemoglobin 9.2. Platelet count 223. Sodium 136. Potassium 4.6. BUN 31. Creatinine 1.55. Lactic acid 2.7. Troponin 0.264. proBNP 5540. TSH 1.280. - Current home cardiac medications include aspirin 81 mg daily, Plavix 75 mg daily, lisinopril 40 mg daily, amlodipine 5 mg daily, rosuvastatin 10 mg daily. - Most recent echocardiogram obtained in September 2024 revealed ejection fraction 52%, severe TR, mild AR, moderate MR, mild , RVSP 52 mmHg - Cardiac catheterization history: November 2018 revealing chronically occluded proximal left main, critical stenosis in the mid RCA, patent VERA to LAD, patent SVG to ramus intermedius, patent SVG to right coronary artery. Normal left ventricular size and systolic function. Medical management was recommended 04/11/2025 Patient is status post dual-chamber pacemaker (Medtronic) implantation yesterday with Dr. Grande. Patient examined this morning. She states she is feeling much better. She denies chest pain or pressure. She denies shortness of breath. Vital signs are stable. Postoperative chest x-ray reviewed. Awaiting device interrogation this morning. PHYSICAL EXAM: VITAL SIGNS: Reviewed. GENERAL: Well-developed in no acute distress. HEENT: Head is normocephalic. Pupils are equal, round. Sclerae anicteric. Mucous membranes of the mouth are moist. Neck supple. No JVD or thyromegaly LUNGS: Respirations even and unlabored. Lungs essentially clear to auscultation bilaterally. HEART: Irregular rate and rhythm. S1 and S2 heard. ABDOMEN: Soft. Nondistended. Nontender. EXTREMITIES: Normal range of motion. No clubbing or cyanosis. Peripheral pulses intact. No lower extremity edema NEUROLOGIC: Awake and alert. Oriented x 3. ASSESSMENT: Generalized weakness with dizziness and lightheadedness Permanent atrial fibrillation with slow ventricular rate, heart rate 30s50s, not on any AV michel blocking agents outpatient Status post Medtronic dual-chamber pacemaker implantation, 04/10/2025 Status post Watchman device, 04/09/2025 Atrial tachycardia with bradycardia Episodes of second-degree heart block with 2-1 conduction and pauses, yesterday at [facility] Elevated troponin of unclear clinical significance, no evidence of acute coronary syndrome Coronary artery disease with previous CABG Hypertension Hyperlipidemia History of diabetes History of syncope PLAN: Awaiting pacemaker interrogation this morning. Once completed, patient may be discharged home and follow up in the office with Dr. Hart Nurse practitioner note has been reviewed by physician. Signing provider agrees with the documented findings, assessment, and plan of care documented by LACE WEAVER as a scribe. Objective - Vital Signs Vital signs: Vital Signs Temp 98.1 F 04/11/25 08:20 Pulse 80 04/11/25 08:20 Resp 16 04/11/25 08:20 BP 109/62 04/11/25 08:20 Pulse Ox 95 04/11/25 08:34 FiO2 Intake & Output 04/10/25 04/11/25 04/11/25 18:59 06:59 18:59 Intake Total 452 Balance 452 Weight 82.554 kg 78.6 kg Intake: IV 452 Other: Voiding Method Toilet # Voids 1 - Labs CBC & Chem 7: 04/11/25 06:53 04/11/25 06:53 Labs: Abnormal Lab Results - Last 24 Hours (Table) 04/10/25 04/10/25 04/10/25 Range/Units 10:37 10:37 10:37 RBC 2.67 L (4.10-5.20) 10*6/uL Hgb 9.2 L (12.0-15.0) g/dL Hct 27.6 L (37.2-46.3) % MCV 103.4 H (80.0-97.0) fL MCH 34.5 H (27.0-32.0) pg Plt Count (140-440) 10*3/uL Eosinophils # 0.01 L (0.04-0.35) 10*3/uL INR 1.2 H (<1.2) Sodium 136 L (137-145) mmol/L Carbon Dioxide 18 L (22-30) mmol/L BUN 31 H (7-17) mg/dL Creatinine 1.55 H (0.52-1.04) mg/dL Glucose (74-99) mg/dL Plasma Lactic Acid Armani (0.7-2.0) mmol/L Magnesium 1.3 L (1.6-2.3) mg/dL Troponin I (0.000-0.034) ng/mL Total Protein (6.3-8.2) g/dL 04/10/25 04/10/25 04/11/25 Range/Units 10:37 10:37 06:53 RBC 2.30 L (4.10-5.20) 10*6/uL Hgb 7.8 L (12.0-15.0) g/dL Hct 24.2 L (37.2-46.3) % MCV 105.2 H (80.0-97.0) fL MCH 33.9 H (27.0-32.0) pg Plt Count 115 L (140-440) 10*3/uL Eosinophils # (0.04-0.35) 10*3/uL INR (<1.2) Sodium (137-145) mmol/L Carbon Dioxide (22-30) mmol/L BUN (7-17) mg/dL Creatinine (0.52-1.04) mg/dL Glucose (74-99) mg/dL Plasma Lactic Acid Armani 2.7 H* (0.7-2.0) mmol/L Magnesium (1.6-2.3) mg/dL Troponin I 0.264 H* (0.000-0.034) ng/mL Total Protein (6.3-8.2) g/dL 04/11/25 Range/Units 06:53 RBC (4.10-5.20) 10*6/uL Hgb (12.0-15.0) g/dL Hct (37.2-46.3) % MCV (80.0-97.0) fL MCH (27.0-32.0) pg Plt Count (140-440) 10*3/uL Eosinophils # (0.04-0.35) 10*3/uL INR (<1.2) Sodium (137-145) mmol/L Carbon Dioxide 18 L (22-30) mmol/L BUN 28 H (7-17) mg/dL Creatinine 1.55 H (0.52-1.04) mg/dL Glucose 66 L (74-99) mg/dL Plasma Lactic Acid Armani (0.7-2.0) mmol/L Magnesium (1.6-2.3) mg/dL Troponin I (0.000-0.034) ng/mL Total Protein 6.2 L (6.3-8.2) g/dL
[2025-04-11 11:38] LABS: Glucose,Whole Blood 172 mg/dL (70-110)
--- NOTE | 2025-04-11 22:52 | DS ---
DISCHARGE SUMMARY FINAL DIAGNOSES: 1. Generalized weakness and dizziness with symptomatic bradycardia with 3:1 conduction pauses, status post dual-chamber pacemaker implantation. 2. Status post Watchman device implantation recently. 3. History of paroxysmal atrial fibrillation. 4. Acute on chronic renal failure. 5. Multiple complex medical issues. DISCHARGE DISPOSITION: The patient is being discharged in stable condition and guarded prognosis. HISTORY OF PRESENT ILLNESS: This 75-year-old woman with a past medical history of multiple problems, admitted with dizziness, weakness, and cardiac arrhythmia with conduction block was noted, biventricular pacemaker implanted. The patient presented with creatinine is 1.5, hemoglobin 7.8. Recommended close outpatient followup. Platelets are 115. Cardiology cleared the patient for discharge. I would recommend to continue with the home medications. Follow up with Dr. Ruggiero. CBC, BMP. Follow with Cardiology as recommended. Plavix 75 mg p.o. daily was added. Please refer to discharge reconciliation sheet for other list of medications. MMODL / IJN: [id number] /
[2025-04-14] MEDS ORDERED: MULTIVITAMINS, THERA 1 EACH TAB PO SCH (09:00)
== END 2025-04-11 14:57 | disposition home or self-care (01) | DRG 243 ==
LOC: EC 10:02 → 3SCARD 13:34
PROVIDERS: ADMIT Hospitalist; ATTEND Hospitalist
PROC: 02H63JZ Insertion of Pacemaker Lead into Right Atrium, Percutaneous Approach (ICD-10-PCS; 2025-04-10)
PROC: 02HK3JZ Insertion of Pacemaker Lead into Right Ventricle, Percutaneous Approach (ICD-10-PCS; 2025-04-10)
PROC: B51N1ZZ Fluoroscopy of Left Upper Extremity Veins using Low Osmolar Contrast (ICD-10-PCS; 2025-04-10)
PROC: 5A1223Z Performance of Cardiac Pacing, Continuous (ICD-10-PCS; 2025-04-10)
PROC: 0JH606Z Insertion of Pacemaker, Dual Chamber into Chest Subcutaneous Tissue and Fascia, Open Approach (ICD-10-PCS; principal; 2025-04-10 12:20)
DX: I49.5 Sick sinus syndrome (principal); Z00.6 Encounter for examination for normal comparison and control in clinical research program; E87.1 Hypo-osmolality and hyponatremia; I47.19 Other supraventricular tachycardia; I44.1 Atrioventricular block, second degree; D53.9 Nutritional anemia, unspecified; E11.22 Type 2 diabetes mellitus with diabetic chronic kidney disease; I13.10 Hypertensive heart and chronic kidney disease without heart failure, with stage 1 through stage 4 chronic kidney disease, or unspecified chronic kidney disease; J45.909 Unspecified asthma, uncomplicated; N18.9 Chronic kidney disease, unspecified; I08.2 Rheumatic disorders of both aortic and tricuspid valves; I48.21 Permanent atrial fibrillation; I48.92 Unspecified atrial flutter; N17.9 Acute kidney failure, unspecified; E78.5 Hyperlipidemia, unspecified; Z11.52 Encounter for screening for COVID-19; M19.90 Unspecified osteoarthritis, unspecified site; I95.9 Hypotension, unspecified; I25.10 Atherosclerotic heart disease of native coronary artery without angina pectoris; I25.2 Old myocardial infarction; Z79.02 Long term (current) use of antithrombotics/antiplatelets; Z79.82 Long term (current) use of aspirin; Z79.84 Long term (current) use of oral hypoglycemic drugs; Z79.899 Other long term (current) drug therapy; Z85.828 Personal history of other malignant neoplasm of skin; Z95.1 Presence of aortocoronary bypass graft; Z95.5 Presence of coronary angioplasty implant and graft; R53.83 Other fatigue; Z95.818 Presence of other cardiac implants and grafts
CPT/HCPCS: 33208; 36415; 71045; 71046; 80053; 83036; 83605; 83735; 83880; 84443; 84484; 85025; 85610; 85730; 86850; 86900; 86901; 87040; 87636; 93005; 93306; 94760; 96361; 96365; 96366; 99291

== ENCOUNTER → 2025-05-08 | Outpatient (CLI) | payer MEDICARE ==
[2025-05-08 15:45] LABS: Chol/HDL Ratio 2.37 Ratio; LDL Cholesterol,Calculated 64.1 mg/dL (0.0-131.0); VLDL Calculation 15.04 mg/dL (5.00-40.00)
[2025-05-08 15:47] LABS: ALT 8 U/L (8-44); AST 13 U/L (13-35); Albumin 3.9 g/dL (3.8-4.9); Alkaline Phosphatase 48 U/L (41-126); BUN/Creat Ratio 17.77 Ratio (12.00-20.00); Blood Urea Nitrogen 23.1 mg/dL (9.0-27.0); Calcium 9.4 mg/dL (8.7-10.3); Carbon Dioxide 23.6 mmol/L (21.6-31.8); Chloride 104 mmol/L (96-109); Globulin 2.3 g/dL (1.6-3.3); Glucose 49 mg/dL (70-110); Potassium 4.4 mmol/L (3.5-5.5); Sodium 139 mmol/L (135-145); Total Bilirubin 0.3 mg/dL (0.3-1.2); Total Protein 6.2 g/dL (6.2-8.2)
[2025-05-08 17:39] LABS: Urine Creatinine 85.5 mg/dL (28.0-217.0)
== END | disposition home or self-care (01) ==
LOC: LABWHC1 09:33
PROVIDERS: ATTEND Internal Medicine Endocrinology, Diabetes & Metabolism
DX: E11.65 Type 2 diabetes mellitus with hyperglycemia (principal)
CPT/HCPCS: 36415; 80053; 80061; 82043; 82570; 84443